=== PATIENT | male | born 1990 | race African-American/Black ===

== ENCOUNTER 2025-03-31 14:00 | Outpatient (AMB) | payer OTHER, SELFPAY ==
--- OUTSIDE RECORDS SUMMARY | 2025-03-31 14:04 | XMS_ITS | Clinical Summary ---
Author Organization [facility] it Address [id number] [place] [id number] Care Team Providers Care Assembly Machine Tender Name Role Phone Ori Gonzales MD Primary Care Pr ovider Allergies No known active allergies Social History Tobacco Use Types Packs/Day Years Used Date Smoking Tobacco: Never Assessed Sex and Gender Information Value Date Recorded Sex Assigned at Not on file Legal Sex Male 3:59 AM EST Gender Identity Not on file Sexual Orientation Not on file Obstetrics History Last Filed Vital Signs Vital Sign Reading Time Taken Comments Blood Pressure 122/66 11/21/2023 2:52 PM EST Pulse 63 11/21/2023 2:52 PM EST Temperature - - Respiratory Rate - - Oxygen Saturation - - Inhaled Oxygen Concentration - - Weight - - Height - - Body Mass Index - - Plan of Treatment Health Maintenance Due Date Last Done Comments DTaP,Tdap,and Td Vaccines (7 - Tdap) 07/06/2015 07/06/2005, 12/19/1996, 04/05/1994, Additional history exists Depression Screening 10/21/2022 HIV Screening 10/21/2022 Hepatitis C Screening 10/21/2022 Social Influencers of Health Screening 10/21/2022 COVID-19 Vaccine ( season) 2024 Influenza Vaccine (Season Ended) 2025 HIB Vaccines Completed 11/07/1993, 06/1993, 01/20/1993, Additional history exists IPV Vaccines Completed 12/19/1996, 03/18, 01/20/1993, Additional history exists Hepatitis B Vaccines Completed 09/08/1997, 01/14/1995, 1992 MMR Vaccines Completed 05/10/2011, 11/07/1993 Meningococcal ACWY Vaccine Completed 05/10/2011, HPV Vaccines Aged Out No longer eligi ble based on patient's age to complete this topic Hepatitis A Vaccines Aged Out No long er eligible based on patient's age to complete this topic Meningococcal B Vaccine Aged Out No l onger eligible based on patient's age to complete this topic Pneumococcal Vaccine: Pediatrics (0 to 5 Years) and At-Risk Patients (6 to 64 Years) Aged Out No longer eligible based on patient's age to complete this topic RSV Immunization Patients Under 20 months Aged Out No longer eligible based on patient's age to complete this topic Varicella Vaccines Aged Out No longer eligible based on patient's age to complete this topic Care Teams Assembly Machine Tender Relationship Specialty Start Date End Date Ori Gonzales MD PCP - General 06/11/23
--- OUTSIDE RECORDS SUMMARY | 2025-03-31 14:04 | XMS_ITS | Clinical Summary ---
Author Organization [facility] Address [address] [place] [address] Care Team Providers Care Fuel Management Handler Name Role Phone Peter Rajan MD Primary Care Provider [phone] Allergies No known active allergies Medications Medication Sig Dispensed Refills Start Date End Date Status ibuprofen (ADVIL,MOTRIN) 200 MG tabletIndications:Mil d to Moderate Pain Take 3 tablets (600 mg total) by mouth every 6 (six) hours as needed for pain. 30 tablet 0 12/03/2019 Active Social History Tobacco Use Types Packs/Day Years Used Date Smoking Tobacco: Former Cigarettes Smokeless Tobacco: Never Alcohol Use Standard Drinks/Week Comments Yes 0 (1 standard drink = 0.6 oz pur e alcohol) soical Sex and Gender Information Value Date Recorded Sex Assigned at Male 12/03/2019 7:54 PM EST Gender Identity Male 12/03/2019 7:54 PM EST Sexual Orientation Not on file Job Start Date Occupation Industry Not on file Not on file Not on file Last Filed Vital Signs Vital Sign Reading Time Taken Comments Blood Pressure 131/75 05/19/2021 10:36 AM EDT Pulse 75 05/19/2021 10:36 AM EDT Temperature 36.7 ??C (98.1 ??F) 05/19/2021 10:35 AM E DT Respiratory Rate 16 05/19/2021 10:35 AM EDT Oxygen Saturation 97% 05/19/2021 10:36 AM EDT Inhaled Oxygen Concentration - - Weight 107 kg (236 lb) 05/19/2021 10:35 AM EDT Height 185.4 cm (6' 1 ) 05/19/2021 10:35 AM EDT Body Mass Index 31.14 05/19/2021 10:35 AM EDT Plan of Treatment Health Maintenance Due Date Last Done Comments Hepatitis B Vaccines (1 of 3 - 3-dose series) 1992 Hepatitis C Screening 1992 COVID-19 Vaccine (#1) 01/15/1993 Depression Screening 2004 BMI Counseling 2010 Preventative Health Evaluation 2010 DTap / Tdap / Td (1 - Tdap) 2011 Influenza Vaccine (#1) 2024 Pneumococcal Vaccine Aged Out No long er eligible based on patient's age to complete this topic RSV Ped < 20 months Aged Out No longe r eligible based on patient's age to complete this topic Care Teams Fuel Management Handler Relationship Specialty Start Date End Date Peter Rajan MD [address] [place] [address] PCP - General Internal Medicine 05/19/21
--- OUTSIDE RECORDS SUMMARY | 2025-03-31 14:04 | XMS_ITS | Patient Health Record ---
Author Organization [facility] Address [address] [place] [address] Care Team Providers Care Flash Designer Name Role Phone RODRIGO ESCOBAR Primary Care Provider [phone] BhargavheshamPaulina tranemelia Unavailable [phone] Allergies No Known Allergies Results Component Value Reference Range Notes Comp. Metabolic Panel ([id number] Reviewed date:08/20/2024 07:50:39 AM Interpretation: Performing Lab:[facility] [place], Phone - [phone], Director - [facility] Notes/Report: Clinical Information:SRC:UR SRC:UR Glucose 95 70-99 mg/dL BUN 16 6-20 mg/dL Creatinine 0.90 0.76-1.27 mg/dL eGFR 116 >59 mL/min/1.73 BUN/Creatinine Ratio 18 9-20 Sodium 141 134-144 mmol/L Potassium 4.1 3.5-5.2 mmol/L Chloride 104 96-106 mmol/L Carbon Dioxide, Total 24 20-29 mmol/L Calcium 9.5 8.7-10.2 mg/dL Protein, Total 7.3 6.0-8.5 g/dL Albumin 4.8 4.1-5.1 g/dL Globulin, Total 2.5 1.5-4.5 g/dL Bilirubin, Total 0.5 0.0-1.2 mg/dL Alkaline Phosphatase 98 44-121 IU/L AST (SGOT) 33 0-40 IU/L ALT (SGPT) 36 0-44 IU/L Lipid Panel-[id number] Reviewed date:08/20/2024 07:50:36 AM Interpretation: Performing Lab:[facility] [place], Phone - [phone], [facility] Notes/Report: Clinical Information:SRC:UR SRC:UR Cholesterol, Total 135 100-199 mg/dL Triglycerides 59 0-149 mg/dL HDL Cholesterol 51 >39 mg/dL VLDL Cholesterol Cj 13 5-40 mg/dL LDL Chol Calc (NIH) 71 0-99 mg/dL Neisseria gonorrhoeae, BABS-1 94652 Reviewed date:08/20/2024 07:50:27 AM Interpretation: Performing Lab:[facility] [address], Phone - [phone], [facility] Notes/Report: Clinical Information:SRC:UR SRC:UR Neisseria gonorrhoeae, BABS Negative Negative Chlamydia trachomatis, BABS-1 21619 Reviewed date:08/20/2024 07:50:32 AM Interpretation: Performing Lab:[facility] [place], [address] [place] [address], Phone - [phone], [facility] Notes/Report: Clinical Information:SRC:UR SRC:UR Chlamydia trachomatis, BABS Negative Negative HIV-1/HIV-2 Qualitative RNA- [id number] Reviewed date:08/20/2024 07:49:46 AM Interpretation: Performing Lab:[facility] [address], Phone - [phone], [facility] Notes/Report: Clinical Information:SRC:UR SRC:UR HIV-1 RNA Non Reactive Non Reactive HIV-2 RNA Non Reactive Non Reactive DONOR Syphilis (T pallidum)- [id number] Reviewed date:08/20/2024 07:52:54 AM Interpretation: Performing Lab:[facility] [address], Phone - [phone], Director - [facility] Notes/Report: Clinical Information:SRC:UR SRC:UR DONOR Syphilis (T pallidum) Non Reactive Non Reactive Test performed with [facility] Syphilis (T pallidum)-G kit. Hepatitis B Surf Ab Quant-00 6530 Reviewed date:08/20/2024 07:50:21 AM Interpretation: Performing Lab:[facility] [address], Phone - [phone], Director - Jaz Notes/Report: Clinical Information:SRC:UR SRC:UR Hepatitis B Surf Ab Quant 12.5 Immunity>10 mIU /mL Status of Immunity Anti-HBs Level Inconsistent with Immunity 0.0 - 10.0 Consistent with Immunity >10.0 TSH-[id number] Reviewed date:08/20/2024 07:49:39 AM Interpretation: Performing Lab:[facility] [place], [address], [place], Phone - [phone], Director - Jaz Notes/Report: Clinical Information:SRC:UR SRC:UR TSH 0.995 0.450-4.500 uIU/mL Testosterone-[id number] Reviewed date:08/20/2024 07:49:56 AM Interpretation: Performing Lab:[facility] [place], [address] [place] [address], [place], Phone - [phone], Director - Jaz Notes/Report: Clinical Information:SRC:UR SRC:UR Testosterone 369 264-916 ng/dL Adult male reference interval is based on a population of healthy nonobese males (BMI <30) between 19 and 39 years old. kelle Beal.al. JCEM 2017,102;1413-8672. PMID: [id number]. Magnesium-[id number] Reviewed date:08/20/2024 07:49:37 AM Interpretation: Performing Lab:[facility] [place], [address] [place] [address], [place], Phone - [phone], Director - Jaz Notes/Report: Clinical Information:SRC:UR SRC:UR Magnesium 2.1 1.6-2.3 mg/dL Reason For Referral Reason Please evaluate and treat Diagnosis 1 Palpitations (R00.2) Referral Organization [facility] Referring Provider First Name [facility] Referring Provider Last Name [facility] Referring Provider Speciality Internal edicine Referred Provider Specialty Cardiology Referral Priority Routine Reason GERD please evalua te and treat Diagnosis 1 Gastroesophageal ref lux disease, unspecified whether esophagitis present (K21.9) Referral Organization [facility] Referring Provider First Name [facility] Referring Provider Last Name [facility]erred Provider Specialty Gastroentero logy General Notes Referral was faxed [facility]. Please contact patient for scheduling.Mathew Rashida 01/18/2025 09:54:34 AM > Referral Priority Routine Medications Medication SIG (Take, Route, Frequency, Duration) Notes Start Date End Date Status Viagra 25 MG 1 tablet as needed Orally Once a day for 30 day(s) 10/29/2022 Not-Taking Omeprazole 20 MG 1 capsule 30 minutes before morning meal Orally Once a day for 30 days 10/07/2024 Not-Taking QC Famotidine Acid Crown Blocker 10 MG 1 tablet as needed Orally Twice a day for 30 days 11/26/2024 Active hydrOXYzine HCl 25 MG 1 tablet as needed Orally Once a day for 30 days 10/07/2024 Active Albuterol Sulfate HFA 108 (90 Base) MCG/ACT 1 puff as needed Inhalation every 4 hrs for 30 days Not-Taking Aspirin 81 81 MG 1 tablet Orally Once a day Not-Taking Immunizations Vaccine Route Administration Date Status Comme nts COVID Moderna Unknown 05/17/2021 Administered COVID Moderna Unknown 06/14/2021 Administered Social History Tobacco Use: Social History Observation Description Date Details (start date - stop date) Former Smoker NA - NA Tobacco Use/Smoking Question Answer Notes Are you a former smoker How long has it been since you last smoked? 3-6 months Alcohol Screen (Audit-C) Question Answer Notes Did you have a drink contain ing alcohol in the past year? Yes How often did you have a dri nk containing alcohol in the past year? Monthly or less (1 point) How many drinks did you have on a typical day when you were drinking in the past year? 1 or 2 drinks (0 point) Points 1 Interpretation Negative Section Notes: Patient was heavy drinker an d cut back in 2017. Patient was heavy drinker an d cut back in 2017. Patient was heavy drinker an d cut back in 2017. Patient was heavy drinker an d cut back in 2017. Patient was heavy drinker an d he stopped drinking heavy in 2017. Patient was heavy drinker an d cut back in 2017. Problems Problem Type SNOMED Code ICD Code Onset Dates Problem Status W/U Status Risk Notes Problem Obesity due to excess calories (392737345) Other obesity due to excess calories (E66.09) Active confirmed Problem Cannabis abuse (38360927) Cannabis abuse, uncomplicated (F12.10) Active confirmed Problem Mild intermittent asthma (783391625) Mild intermittent asthma, uncomplicated (J45.20) Active confirmed Problem Erectile dysfunction (disorder) (514135892) Male erectile dysfunction, unspecified (N52.9) Active confirmed Problem Painful micturition (33964088) Painful micturition, unspecified (R30.9) Active confirmed Problem Gastroesophageal reflux disease without esophagitis (220475697) Gastroesophageal reflux disease without esophagitis (K21.9) Active confirmed Problem Generalized anxiety disorder (65702016) MARYLIN (generalized anxiety disorder) (F41.1) Active confirmed Problem Gastroesophageal reflux disease (131121844) Gastroesophageal reflux disease, unspecified whether esophagitis present (K21.9) Active confirmed Vital Signs Heart Rate 75 /min 01/15/2025 Temperature 97.4 degrees Fahrenheit 01/15/2025 Oximetry 98 % 01/15/2025 Blood pressure diastolic 72 mm Hg 01/15/2025 Height 71 in 01/15/2025 Blood pressure systolic 120 mm Hg 01/15/2025 Weight 227.6 lbs 01/15/2025 BMI 31.74 kg/m2 01/15/2025 Encounters Encounter Location Date Provider Diagnosis [address] [address] 06/30/2024 Lenin Multani [address] [address] 07/31/2024 RODRIGO ESCOBAR Male erectile dysfunction, unspecified N52.9 ; Palpitations R00.2 ; Mild intermittent asthma, uncomplicated J45.20 ; Cannabis abuse, uncomplicated F12.10 ; Encounter for screening for infections with a predominantly sexual mode of transmission Z11.3 and Encounter for screening for cardiovascular disorders Z13.[address] [address] 09/22/2024 Ghadeer Bhargavloum Palpitation R00.2 ; Cannabis abuse, uncomplicated F12.10 and Mild intermittent asthma, uncomplicated J45.[address] [address] 10/07/2024 Ghadeer Bhargavloum Gastroesophageal ref lux disease without esophagitis K21.9 and MARYLIN (generalized anxiety disorder) F41.[address] [address] 11/04/2024 [facility] Gastroesophageal ref lux disease without esophagitis K21.9 ; MARYLIN (generalized anxiety disorder) F41.1 ; Palpitations R00.2 ; Other obesity due to excess calories E66.09 ; Dietary counseling and surveillance Z71.3 and Cannabis abuse, uncomplicated F12.10 [facility] [address] [place] [address] 01/15/2025 [facility] Gastroesophageal ref lux disease without esophagitis K21.9 [facility] [address] [place] [address] 08/10/2024 [facility] [address] [place] [address] 08/13/2024 [facility] [address] [place] [address] 01/18/2025 [facility] [address] [place] [address] 02/26/2025 [facility] Shortness of breath R06.02 [facility] [address] [place] [address] 03/31/2025 [facility] [address] [place] [address] 09/16/2024 [facility] [address] [place] [address] 09/16/2024 [facility] [address] [place] [address] 09/17/2024 [facility] [address] [place] [address] 09/18/2024 [facility] [address] [place] [address] 10/05/2024 [facility] [address] [place] [address] 10/05/2024 [facility] [address] [place] [address] 10/05/2024 [facility] [address] [place] [address] 10/12/[address] [place] [address] 10/14/[address] [place] [address] 11/26/2024 [facility] Gastroesophageal ref lux disease without esophagitis K21.[address] [place] [address] 11/26/[address] [place] [address] 12/11/[address] [place] [address] 03/21/[address] [place] [address] 03/22/[address] [place] [address] 03/24/2025 [facility] Assessments Encounter Date Diagnosis (ICD Code) Assessment Notes Treatment Notes Treatment Clinical Notes Section Notes 11/26/2024 Gastroesophageal reflux disease without esophagitis (ICD-10 - K21.9) 01/15/2025 Gastroesophageal reflux disease without esophagitis (ICD-10 - K21.9) Isidoro is 34 years old gentleman with generalized anxiety disorder, mild intermittent asthma, cannabis use is here for symptoms of nausea and sometimes regurgitation of food especially in the morning is here for follow-up. Plan is as follows Acid reflux. Differential is gastritis, hiatal hernia, cannabis use. Currently on famotidine 10 mg 1 tablet twice a day. According to him PPI makes his symptoms worse. Diet restrictions discussed. Advised abstinence from cannabis and observe. Referral to GI for upper endoscopy for further evaluation 02/26/2025 Shortness of breath (ICD-10 - R06.02) 11/04/2024 Gastroesophageal reflux disease without esophagitis (ICD-10 - K21.9) Mr. Hollins is a 34-year-old gentleman with palpitation, GERD, anxiety disorder, male erectile dysfunction and mild intermittent asthma here for follow-up on blood work Plan as follows: Palpitations. Most likely secondary to anxiety and he was also using marijuana which he has decreased and high calorie foods/caffeinated beverages. There is no cardiac complement to palpitations. No need for workup because he had extensive workup in the hospital and it was negative. Acid reflux. Continue omeprazole 20 mg 1 tablet daily which is helping. Generalized anxiety disorder. Continue on hydroxyzine 25 mg 1 tablet daily. He also had a consult with the psychiatry nurse practitioner not too long ago for question of auditory and visual hallucinations which most likely were coming from marijuana use. According to the patient they wanted him to be on medications but he declined. He is currently having therapy sessions on a regular basis. Obesity. Patient encouraged to lose weight. He has cut back on high calorie foods and he is exercising regularly as much as possible Marijuana dependence. Side effects of marijuana discussed with the patient and he has almost stopped smoking marijuana which most likely were the cause of his symptoms of palpitations, anxiety, auditory/visual hallucination and most likely erectile dysfunction as well. 11/04/2024 MARYLIN (generalized anxiety disorder) (ICD-10 - F41.1) Mr. Hollins is a 34-year-old gentleman with palpitation, GERD, anxiety disorder, male erectile dysfunction and mild intermittent asthma here for follow-up on blood work Plan as follows: Palpitations. Most likely secondary to anxiety and he was also using marijuana which he has decreased and high calorie foods/caffeinated beverages. There is no cardiac complement to palpitations. No need for workup because he had extensive workup in the hospital and it was negative. Acid reflux. Continue omeprazole 20 mg 1 tablet daily which is helping. Generalized anxiety disorder. Continue on hydroxyzine 25 mg 1 tablet daily. He also had a consult with the psychiatry nurse practitioner not too long ago for question of auditory and visual hallucinations which most likely were coming from marijuana use. According to the patient they wanted him to be on medications but he declined. He is currently having therapy sessions on a regular basis. Obesity. Patient encouraged to lose weight. He has cut back on high calorie foods and he is exercising regularly as much as possible Marijuana dependence. Side effects of marijuana discussed with the patient and he has almost stopped smoking marijuana which most likely were the cause of his symptoms of palpitations, anxiety, auditory/visual hallucination and most likely erectile dysfunction as well. 07/31/2024 Male erectile dysfunction, unspecified (ICD-10 - N52.9) Mr. Hollins is a 34-year-old gentleman with male erectile dysfunction and mild intermittent asthma here for follow up. Plan is as follows: Palpitations. Advised not to consume energy drinks, high calorie foods and preexercise drinks which can lead to palpitation. Encouraged to avoid caffeinated beverages and smoking. Appropriate hydration he can use qlfp-pfl-nkilafl magnesium. Electrocardiogram was done today which is normal sinus rhythm with no acute ST or T wave changes. We will do 48 hours Holter monitor for further evaluation. We also ordered blood work to rule out any electrolyte abnormality. He can use jkcf-sdu-scondij magnesium. Hyperlipidemia. Dietary restrictions advised. Recheck lipid panel. Male erectile dysfunction. Continue Viagra 25 MG. Weight loss advised. Asthma. He uses his inhalers as needed. Cannabis use. Complications of cannabis use discussed and patient abstinence encouraged. Class 1 obesity. Advised cardio exercises. Consume more proteins. Unprotected sexual intercourse. Blood work ordered for STD and encouraged not to do unprotected sexual intercourse General health concerns discussed with patient. Scribe services used to formulate this note under HIPAA compliance and under [place] law mandated for scribe services. Patient aware of service. Verbal consent and written consent taken from the patient. Patient understands and verbalizes understanding of the scribes services and all questions answered regarding scribes services. Patient agrees to use of scribes services. 07/31/2024 Palpitations (ICD-10 - R00.2) Mr. Hollins is a 34-year-old gentleman with male erectile dysfunction and mild intermittent asthma here for follow up. Plan is as follows: Palpitations. Advised not to consume energy drinks, high calorie foods and preexercise drinks which can lead to palpitation. Encouraged to avoid caffeinated beverages and smoking. Appropriate hydration he can use qozu-pyo-lfmjkqp magnesium. Electrocardiogram was done today which is normal sinus rhythm with no acute ST or T wave changes. We will do 48 hours Holter monitor for further evaluation. We also ordered blood work to rule out any electrolyte abnormality. He can use dxgx-bej-uijjpae magnesium. Hyperlipidemia. Dietary restrictions advised. Recheck lipid panel. Male erectile dysfunction. Continue Viagra 25 MG. Weight loss advised. Asthma. He uses his inhalers as needed. Cannabis use. Complications of cannabis use discussed and patient abstinence encouraged. Class 1 obesity. Advised cardio exercises. Consume more proteins. Unprotected sexual intercourse. Blood work ordered for STD and encouraged not to do unprotected sexual intercourse General health concerns discussed with patient. Scribe services used to formulate this note under HIPAA compliance and under [place] law mandated for scribe services. Patient aware of service. Verbal consent and written consent taken from the patient. Patient understands and verbalizes understanding of the scribes services and all questions answered regarding scribes services. Patient agrees to use of scribes services. 09/22/2024 Palpitation (ICD-10 - R00.2) Mr. Hollins is a 34-year-old gentleman with male erectile dysfunction and mild intermittent asthma here for follow up. Plan as follows: Palpitation: - EKG is done in the office today, HR of 65bpm. Non-specific changes. We will check CBC for possible anemia. He had TSH and magnesium tests done and were within normal limits. - Advised patient on discontinuiung pre-workout supplements, energy drinks, caffiene and marijuana. Advised on Hydration, decreased in workout intensity for one week. We will recheck in one week. If sxs have subsided then it is due to stimulants if not then it is possible anxiety. Cannabis Use: - Possible S/E have been discussed. CBT is an option for smoking cessation Mild intermittent asthma - Lungs are CTAB, no coughing. Advised on Using albuterol only as needed for cough. I have rendered the services for this patient under direct supervision of Dr. Escobar, who did not see the patient but was available upon request 10/07/2024 Gastroesophageal reflux disease without esophagitis (ICD-10 - K21.9) Mr. Hollins is a 34-year-old gentleman with male erectile dysfunction and mild intermittent asthma here for chest pain that is triggered by eating. Plan as follows: GERD: - Advised patient that his CP is due to GERD. Avoid greasy food and triggers. Started him on Omeprazole 20mg. Based on presentation of the sxs, less likely cardiac pathology given negative workup in the ER. He has also been referred to Cardiology for 48hour Holter monitor test. He has not received a call yet. - Advised on discontinuing pre-workouts, no physical activity for this week to rest his body. Advised that if he goes back to gym not exceed his capacity. Albuterol as advised before, to be taken if he experiences cough only. Educated that common s/e of palpitations and tremors are common. We will follow up in 1 week. MARYLIN: - Denies HI, SI. 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 He has an appt this week with [facility]. Started patient on Hydroxyzine for anxiety until he sees psychiatry this week for further evaluation. I have rendered the services for this patient under direct supervision of Dr. Escobar, who did not see the patient but was available upon request 10/07/2024 MARYLIN (generalized anxiety disorder) (ICD-10 - F41.1) Mr. Hollins is a 34-year-old gentleman with male erectile dysfunction and mild intermittent asthma here for chest pain that is triggered by eating. Plan as follows: GERD: - Advised patient that his CP is due to GERD. Avoid greasy food and triggers. Started him on Omeprazole 20mg. Based on presentation of the sxs, less likely cardiac pathology given negative workup in the ER. He has also been referred to Cardiology for 48hour Holter monitor test. He has not received a call yet. - Advised on discontinuing pre-workouts, no physical activity for this week to rest his body. Advised that if he goes back to gym not exceed his capacity. Albuterol as advised before, to be taken if he experiences cough only. Educated that common s/e of palpitations and tremors are common. We will follow up in 1 week. MARYLIN: - Denies HI, SI. 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 He has an appt this week with [facility]. Started patient on Hydroxyzine for anxiety until he sees psychiatry this week for further evaluation. I have rendered the services for this patient under direct supervision of Dr. Escobar, who did not see the patient but was available upon request 07/31/2024 Mild intermittent asthma, uncomplicated (ICD-10 - J45.20) Mr. Hollins is a 34-year-old gentleman with male erectile dysfunction and mild intermittent asthma here for follow up. Plan is as follows: Palpitations. Advised not to consume energy drinks, high calorie foods and preexercise drinks which can lead to palpitation. Encouraged to avoid caffeinated beverages and smoking. Appropriate hydration he can use sxaz-ofq-wycjyxk magnesium. Electrocardiogram was done today which is normal sinus rhythm with no acute ST or T wave changes. We will do 48 hours Holter monitor for further evaluation. We also ordered blood work to rule out any electrolyte abnormality. He can use vhza-bis-fsrunvs magnesium. Hyperlipidemia. Dietary restrictions advised. Recheck lipid panel. Male erectile dysfunction. Continue Viagra 25 MG. Weight loss advised. Asthma. He uses his inhalers as needed. Cannabis use. Complications of cannabis use discussed and patient abstinence encouraged. Class 1 obesity. Advised cardio exercises. Consume more proteins. Unprotected sexual intercourse. Blood work ordered for STD and encouraged not to do unprotected sexual intercourse General health concerns discussed with patient. Scribe services used to formulate this note under HIPAA compliance and under [place] law mandated for scribe services. Patient aware of service. Verbal consent and written consent taken from the patient. Patient understands and verbalizes understanding of the scribes services and all questions answered regarding scribes services. Patient agrees to use of scribes services. 09/22/2024 Cannabis abuse, uncomplicated (ICD-10 - F12.10) Mr. Hollins is a 34-year-old gentleman with male erectile dysfunction and mild intermittent asthma here for follow up. Plan as follows: Palpitation: - EKG is done in the office today, HR of 65bpm. Non-specific changes. We will check CBC for possible anemia. He had TSH and magnesium tests done and were within normal limits. - Advised patient on discontinuiung pre-workout supplements, energy drinks, caffiene and marijuana. Advised on Hydration, decreased in workout intensity for one week. We will recheck in one week. If sxs have subsided then it is due to stimulants if not then it is possible anxiety. Cannabis Use: - Possible S/E have been discussed. CBT is an option for smoking cessation Mild intermittent asthma - Lungs are CTAB, no coughing. Advised on Using albuterol only as needed for cough. I have rendered the services for this patient under direct supervision of Dr. Escobar, who did not see the patient but was available upon request 11/04/2024 Palpitations (ICD-10 - R00.2) Mr. Hollins is a 34-year-old gentleman with palpitation, GERD, anxiety disorder, male erectile dysfunction and mild intermittent asthma here for follow-up on blood work Plan as follows: Palpitations. Most likely secondary to anxiety and he was also using marijuana which he has decreased and high calorie foods/caffeinated beverages. There is no cardiac complement to palpitations. No need for workup because he had extensive workup in the hospital and it was negative. Acid reflux. Continue omeprazole 20 mg 1 tablet daily which is helping. Generalized anxiety disorder. Continue on hydroxyzine 25 mg 1 tablet daily. He also had a consult with the psychiatry nurse practitioner not too long ago for question of auditory and visual hallucinations which most likely were coming from marijuana use. According to the patient they wanted him to be on medications but he declined. He is currently having therapy sessions on a regular basis. Obesity. Patient encouraged to lose weight. He has cut back on high calorie foods and he is exercising regularly as much as possible Marijuana dependence. Side effects of marijuana discussed with the patient and he has almost stopped smoking marijuana which most likely were the cause of his symptoms of palpitations, anxiety, auditory/visual hallucination and most likely erectile dysfunction as well. 09/22/2024 Mild intermittent asthma, uncomplicated (ICD-10 - J45.20) Mr. Hollins is a 34-year-old gentleman with male erectile dysfunction and mild intermittent asthma here for follow up. Plan as follows: Palpitation: - EKG is done in the office today, HR of 65bpm. Non-specific changes. We will check CBC for possible anemia. He had TSH and magnesium tests done and were within normal limits. - Advised patient on discontinuiung pre-workout supplements, energy drinks, caffiene and marijuana. Advised on Hydration, decreased in workout intensity for one week. We will recheck in one week. If sxs have subsided then it is due to stimulants if not then it is possible anxiety. Cannabis Use: - Possible S/E have been discussed. CBT is an option for smoking cessation Mild intermittent asthma - Lungs are CTAB, no coughing. Advised on Using albuterol only as needed for cough. I have rendered the services for this patient under direct supervision of Dr. Escobar, who did not see the patient but was available upon request 07/31/2024 Cannabis abuse, uncomplicated (ICD-10 - F12.10) Mr. Hollins is a 34-year-old gentleman with male erectile dysfunction and mild intermittent asthma here for follow up. Plan is as follows: Palpitations. Advised not to consume energy drinks, high calorie foods and preexercise drinks which can lead to palpitation. Encouraged to avoid caffeinated beverages and smoking. Appropriate hydration he can use zgal-pom-eccjuny magnesium. Electrocardiogram was done today which is normal sinus rhythm with no acute ST or T wave changes. We will do 48 hours Holter monitor for further evaluation. We also ordered blood work to rule out any electrolyte abnormality. He can use uwdk-gxe-kezbbey magnesium. Hyperlipidemia. Dietary restrictions advised. Recheck lipid panel. Male erectile dysfunction. Continue Viagra 25 MG. Weight loss advised. Asthma. He uses his inhalers as needed. Cannabis use. Complications of cannabis use discussed and patient abstinence encouraged. Class 1 obesity. Advised cardio exercises. Consume more proteins. Unprotected sexual intercourse. Blood work ordered for STD and encouraged not to do unprotected sexual intercourse General health concerns discussed with patient. Scribe services used to formulate this note under HIPAA compliance and under [place] law mandated for scribe services. Patient aware of service. Verbal consent and written consent taken from the patient. Patient understands and verbalizes understanding of the scribes services and all questions answered regarding scribes services. Patient agrees to use of scribes services. 11/04/2024 Other obesity due to excess calories (ICD-10 - E66.09) Mr. Hollins is a 34-year-old gentleman with palpitation, GERD, anxiety disorder, male erectile dysfunction and mild intermittent asthma here for follow-up on blood work Plan as follows: Palpitations. Most likely secondary to anxiety and he was also using marijuana which he has decreased and high calorie foods/caffeinated beverages. There is no cardiac complement to palpitations. No need for workup because he had extensive workup in the hospital and it was negative. Acid reflux. Continue omeprazole 20 mg 1 tablet daily which is helping. Generalized anxiety disorder. Continue on hydroxyzine 25 mg 1 tablet daily. He also had a consult with the psychiatry nurse practitioner not too long ago for question of auditory and visual hallucinations which most likely were coming from marijuana use. According to the patient they wanted him to be on medications but he declined. He is currently having therapy sessions on a regular basis. Obesity. Patient encouraged to lose weight. He has cut back on high calorie foods and he is exercising regularly as much as possible Marijuana dependence. Side effects of marijuana discussed with the patient and he has almost stopped smoking marijuana which most likely were the cause of his symptoms of palpitations, anxiety, auditory/visual hallucination and most likely erectile dysfunction as well. 07/31/2024 Encounter for screening for infections with a predominantly sexual mode of transmission (ICD-10 - Z11.3) Mr. Hollins is a 34-year-old gentleman with male erectile dysfunction and mild intermittent asthma here for follow up. Plan is as follows: Palpitations. Advised not to consume energy drinks, high calorie foods and preexercise drinks which can lead to palpitation. Encouraged to avoid caffeinated beverages and smoking. Appropriate hydration he can use hfub-xsb-crlroeq magnesium. Electrocardiogram was done today which is normal sinus rhythm with no acute ST or T wave changes. We will do 48 hours Holter monitor for further evaluation. We also ordered blood work to rule out any electrolyte abnormality. He can use rsnm-mms-qxyzkrw magnesium. Hyperlipidemia. Dietary restrictions advised. Recheck lipid panel. Male erectile dysfunction. Continue Viagra 25 MG. Weight loss advised. Asthma. He uses his inhalers as needed. Cannabis use. Complications of cannabis use discussed and patient abstinence encouraged. Class 1 obesity. Advised cardio exercises. Consume more proteins. Unprotected sexual intercourse. Blood work ordered for STD and encouraged not to do unprotected sexual intercourse General health concerns discussed with patient. Scribe services used to formulate this note under HIPAA compliance and under [place] law mandated for scribe services. Patient aware of service. Verbal consent and written consent taken from the patient. Patient understands and verbalizes understanding of the scribes services and all questions answered regarding scribes services. Patient agrees to use of scribes services. 11/04/2024 Dietary counseling and surveillance (ICD-10 - Z71.3) Mr. Hollins is a 34-year-old gentleman with palpitation, GERD, anxiety disorder, male erectile dysfunction and mild intermittent asthma here for follow-up on blood work Plan as follows: Palpitations. Most likely secondary to anxiety and he was also using marijuana which he has decreased and high calorie foods/caffeinated beverages. There is no cardiac complement to palpitations. No need for workup because he had extensive workup in the hospital and it was negative. Acid reflux. Continue omeprazole 20 mg 1 tablet daily which is helping. Generalized anxiety disorder. Continue on hydroxyzine 25 mg 1 tablet daily. He also had a consult with the psychiatry nurse practitioner not too long ago for question of auditory and visual hallucinations which most likely were coming from marijuana use. According to the patient they wanted him to be on medications but he declined. He is currently having therapy sessions on a regular basis. Obesity. Patient encouraged to lose weight. He has cut back on high calorie foods and he is exercising regularly as much as possible Marijuana dependence. Side effects of marijuana discussed with the patient and he has almost stopped smoking marijuana which most likely were the cause of his symptoms of palpitations, anxiety, auditory/visual hallucination and most likely erectile dysfunction as well. 07/31/2024 Encounter for screening for cardiovascular disorders (ICD-10 - Z13.6) Mr. Hollins is a 34-year-old gentleman with male erectile dysfunction and mild intermittent asthma here for follow up. Plan is as follows: Palpitations. Advised not to consume energy drinks, high calorie foods and preexercise drinks which can lead to palpitation. Encouraged to avoid caffeinated beverages and smoking. Appropriate hydration he can use sgjs-qlh-qlorffw magnesium. Electrocardiogram was done today which is normal sinus rhythm with no acute ST or T wave changes. We will do 48 hours Holter monitor for further evaluation. We also ordered blood work to rule out any electrolyte abnormality. He can use mdet-tnj-alpxmyj magnesium. Hyperlipidemia. Dietary restrictions advised. Recheck lipid panel. Male erectile dysfunction. Continue Viagra 25 MG. Weight loss advised. Asthma. He uses his inhalers as needed. Cannabis use. Complications of cannabis use discussed and patient abstinence encouraged. Class 1 obesity. Advised cardio exercises. Consume more proteins. Unprotected sexual intercourse. Blood work ordered for STD and encouraged not to do unprotected sexual intercourse General health concerns discussed with patient. Scribe services used to formulate this note under HIPAA compliance and under [place] law mandated for scribe services. Patient aware of service. Verbal consent and written consent taken from the patient. Patient understands and verbalizes understanding of the scribes services and all questions answered regarding scribes services. Patient agrees to use of scribes services. 11/04/2024 Cannabis abuse, uncomplicated (ICD-10 - F12.10) Mr. Hollins is a 34-year-old gentleman with palpitation, GERD, anxiety disorder, male erectile dysfunction and mild intermittent asthma here for follow-up on blood work Plan as follows: Palpitations. Most likely secondary to anxiety and he was also using marijuana which he has decreased and high calorie foods/caffeinated beverages. There is no cardiac complement to palpitations. No need for workup because he had extensive workup in the hospital and it was negative. Acid reflux. Continue omeprazole 20 mg 1 tablet daily which is helping. Generalized anxiety disorder. Continue on hydroxyzine 25 mg 1 tablet daily. He also had a consult with the psychiatry nurse practitioner not too long ago for question of auditory and visual hallucinations which most likely were coming from marijuana use. According to the patient they wanted him to be on medications but he declined. He is currently having therapy sessions on a regular basis. Obesity. Patient encouraged to lose weight. He has cut back on high calorie foods and he is exercising regularly as much as possible Marijuana dependence. Side effects of marijuana discussed with the patient and he has almost stopped smoking marijuana which most likely were the cause of his symptoms of palpitations, anxiety, auditory/visual hallucination and most likely erectile dysfunction as well. Plan Of Treatment Pending Test Test Name Order Date Holter Test 07/31/2024 CHLAMYDIA GC AMP PROBE, URINE 11/21/2023 HEPATITIS B SURFACE ANTIGEN 11/21/2023 HIV ANTIBODY/ANTIGEN, 4TH GENERATION 02/2024 LIPID PANEL 03/26/2023 SYPHILIS TESTING 11/21/2023 Stress Echocardiogram 02/26/2025 CBC/Differential (No Platelet)-[id number] Future Test Test Name Order Date BASIC METABOLIC PANEL 06/03/2023 LIPID PANEL 06/03/2023 TESTOSTERONE, TOTAL (MALES > 15 YRS) Next Appt Details Provider Name:Lenin ramos, 04/07/2025 02:00:00 PM, [address] [place] [address], [phone], Insurance Providers Payer Name Payer Address Payer Phone Subscriber Number Group Number Insured Name Patient Relationship to Insured Coverage Start Date Coverage End Date [facility] [address] [place] [phone] [id number] Isidoro Hollins Self - patient is the insured Medical (General) History Medical History History ICD Code Mild persistent asthma Male erectile dysfunction
[2025-03-31 14:16] VITALS: BMI 32.1
--- NOTE | 2025-03-31 14:16 | A.OFFVIS_ITS ---
Vital Signs 03/31/25 14:16 03/31/25 15:22 Height 6 ft Weight 236 lb 12.423 oz BMI 32.1 BP 118/72 Blood Pressure Location Rt brachial Position Sitting Respiration 18 Pulse 68 Pulse Source Pulse Oximeter Pulse Oximetry (%) 98 Oxygen Delivery Method Room Air Intake Visit Reasons: Gastroesophageal reflux disease (GERD) Intake Note: Patient referred for gerd which started in July Allergies omeprazole Allergy (Mild, Verified 03/31/25 14:17) Dizziness Medication List - Last Reconciled 03/31/25 by Little Handy CNP hydroxyzine HCl 25 mg PO BEDTIME PRN HPI HPI Gastroesophageal reflux disease (GERD): Details: Patient is a 34-year-old male with PMH of erectile dysfunction and asthma. He was referred by PCP for further evaluation of acid reflux. The patient reports symptoms of acid reflux that started in July. Initial symptoms included chest pain that mimicked a heart attack, leading to emergency room visits and PCP consultations with normal blood work results. The patient was a marijuana smoker at the onset but has since quit. Symptoms currently include a burning sensation in the mid-chest, esophageal spasms, throat tightness, and occasional regurgitation. He also reports difficulty swallowing, particularly with liquids, and occasional sensation of food getting stuck in the throat. Alcohol consumption aggravates GERD symptoms, specifically with certain types like [place] Goose but not with others like Casper's. Omeprazole caused dizziness and was discontinued. Relief is obtained through dietary modifications and abstaining from alcohol and smoking. Severity rated as moderate with significant impact on daily activities. The patient expressed interest in surgical options, specifically the LINX procedure, to manage symptoms and improve quality of life. The patient reported using ephedrine sulfate (25 mg) over the counter as a medication to manage asthma symptoms when albuterol was not effective. The patient experienced esophageal spasms and chest tightness associated with albuterol use, which led to discontinuation of both medications. The patient notes sensitivity to sugar and lactose, with symptoms of throat tightness after consumption. 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, states he wore a heart monitor to log symptoms, which confirmed no cardiac abnormalities. Patient denies: fever/chills, n/v, appetite changes, unintentional wt loss, ab pain, constipation/diarrhea or melena/hematochezia. SOCIAL HISTORY - Diet: Currently on a bland diet, typically rice and chicken, avoids known triggers. - Alcohol/Tobacco/Drug Use: Binge drinks occasionally, formerly smoked marijuana but has since quit. No use of recreational drugs or tobacco. - family hx as below - denies personal hx of CA -denies other significant cardiopulmonary history [facility] Medical History (Updated 03/31/25 @ 14:58 by Little Handy CNP) Overweight Acid reflux Family History (Updated 03/22/25 @ 11:58 by Loretta Mukherjee) Father HTN (hypertension) Mother HTN (hypertension) Social History (Updated 03/22/25 @ 12:00 by Loretta Mukherjee) Household Members: Family Alcohol intake: current Patient Tobacco Use Status: Former Tobacco user Tobacco use type: Cigarette Substance Use Type: Marijuana Review of Systems Const Reports as per HPI ENT Reports as per HPI Card Reports as per HPI Resp Reports as per HPI GI Reports as per HPI Reports as per HPI Physical Exam Vital Signs: BMI result Body Mass Index 32.1 Const General: healthy appearing, no acute distress and well developed Nutritional Appearance: well nourished Orientation/consciousness: patient oriented x3 HEENT Head: Yes normal to inspection, Yes normocephalic and Yes atraumatic Face and sinus: Yes normal facial exam Eyes General: appearance normal, both eyes and all related structures Neck Neck: Yes normal visual inspection Resp Effort & Inspection: normal respiratory effort, able to speak in complete sentences, no tracheal deviation and symmetric chest movement Auscultation: clear to auscultation bilaterally Cardio Jugular venous distension: no JVD Rate: regular rate Rhythm: regular rhythm Heart sounds: S1 normal heart sound present, S2 normal heart sound present, no gallops and no murmurs GI Inspection: Yes normal to inspection and No distended Palpation (GI): Soft to palpation, not firm, nontender and No hepatosplenomegaly present Auscultation: normal bowel sounds Neuro General: patient oriented x3 Gait exam (Neuro): Normal gait present Psych Appearance: grossly normal Mental Status: mental status grossly normal Speech and movement: Normal speech and movement present Affect: normal affect Attitude: cooperative Thought process: Normal thought process present Thought content: Normal thought content present Insight: Good insight present (Psych) Judgement: Good judgement present (Psych) Assessment & Plan Assessment & Plan (1) Acid reflux: Code(s): K21.9 - Gastro-esophageal reflux disease without esophagitis Category: Medical Qualifiers: Esophagitis presence: esophagitis presence not specified Qualified Code(s): K21.9 - Gastro-esophageal reflux disease without esophagitis Plan: Advise we start with diagnostic workup prior to exploring surgery. Do believe he would benefit from pharmacological management with PPI. However, reports of dizziness with omeprazole. We will trial famotidine 20 mg twice a day. We will also obtain barium swallow and EGD given reports of dysphagia. Diagnostic Tests: - Barium swallow study - EGD - Basic labs including complete blood count (CBC), electrolytes, and glucose levels. Patient Education: -Advised against heavy meals; encouraged small, frequent meals instead of large ones. - Instructed to remain upright for 2?3 hours after eating. - Advised to avoid late-night meals, spicy foods, caffeine, alcohol, known dietary triggers, and tight-fitting clothing. - Emphasis placed on gradual implementation of lifestyle changes to improve adherence and symptom control. Plan Advised to avoid OTC ephedrine sulfate until further discussion with PCP on asthma management. Follow-up in 8 weeks or sooner as needed. Time: I spent a total of 60 minutes on the date of encounter which includes: Preparing to see the patient (reviewed previous documentation, test results and medical history) Performing a medically appropriate exam and/or evaluation Ordering medications, tests, and procedures Documenting clinical information in the health record Orders: Orders FL barium swallow Today K21.9 - Gastro-esophageal reflux disease without esophagitis IRON PROFILE Today K21.9 - Gastro-esophageal reflux disease without esophagitis Basic Metabolic Panel Today K21.9 - Gastro-esophageal reflux disease without esophagitis Complete Blood Count no Diff Today K21.9 - Gastro-esophageal reflux disease without esophagitis Hemoglobin A1c Today E66.3 - Overweight Medications: New famotidine Take one tablet twice daily. Best taken 10 to 60 minutes before eating. 20 mg PO BID 180 tabs 1RF GERD Coding Level of Care Code New Pt New Pt Level 5 (14727) Patient Type New Diagnoses Gastroesophageal reflux disease, unspecified whether esophagitis present K21.9 Esophagitis presence: esophagitis presence not specified
[2025-03-31 15:22] VITALS: BP 118/72; PULSE 68; RESP 18; O2SAT 98
== END 2025-03-31 15:14 | disposition home or self-care (01) ==
LOC: HO.HGI 14:00
PROVIDERS: PCP Hospitalist; Visit Provider Nurse Practitioner Family
DX: K21.9 Gastro-esophageal reflux disease without esophagitis (principal)
CPT/HCPCS: 99205

== ENCOUNTER 2025-03-31 14:00 | Outpatient (REF) | payer OTHER, SELFPAY ==
--- OUTSIDE RECORDS SUMMARY | 2025-03-31 15:26 | XMS_ITS | Clinical Summary ---
Author Organization [facility] it Address [id number] [place] [id number] Care Team Providers Care Bridge Expert Name Role Phone Ori Gonzales MD Primary [...] age to complete this topic Care Teams Bridge Expert Relationship Specialty Start Date End Date Ori Gonzales MD PCP - General 06/11/23
--- OUTSIDE RECORDS SUMMARY | 2025-03-31 15:26 | XMS_ITS | Clinical Summary ---
Author Organization [facility] Address [address] [place] [address] Care Team Providers Care Mfg Assoc Name Role Phone Peter Rajan MD Primary Care Provider [phone] Allergies No known active allergies Medications Medication [...] age to complete this topic Care Teams Mfg Assoc Relationship Specialty Start Date End Date Peter Rajan MD [address] [place] [address] PCP - General Internal Medicine 05/19/21
[2025-03-31 16:07] LABS: Hematocrit 44.2 % (42.0-52.0); Hemoglobin 14.8 g/dl (14.0-18.0); Mean Corpuscular HGB Conc 33.5 g/dl (31.0-36.0); Mean Corpuscular Hemoglobin 28.7 pg (27.0-33.0); Mean Corpuscular Volume 85.8 fL (80.0-98.0); Mean Platelet Volume 10.1 fL (9.4-12.4); Platelet Count 249 X10*3/uL (160-400); Red Blood Count 5.15 X10*6/uL (4.60-5.80); Red Cell Distribution Width 11.9 % (11.0-16.0); White Blood Count 8.2 X10*3/uL (4.8-10.8)
[2025-03-31 16:12] LABS: Estimated Average Glucose 103 mg/dL; Hemoglobin A1c % 5.2 % (<6.0); Total Hemoglobin (HGBA1C) 3789.6548 umol/L
[2025-03-31 16:30] LABS: Anion Gap 13 (12-20); Blood Urea Nitrogen 16 mg/dL (9-16); Calcium 9.2 mg/dL (8.4-10.2); Carbon Dioxide 29 mmol/L (22-29); Chloride 103 mmol/L (96-108); Estimated Glomerular Filt Rate > 60; Glucose Random 94 mg/dL (60-115); Iron 78 mcg/dL (45-160); Percent Iron Saturation 24 % (15-50); Potassium 3.7 mmol/L (3.3-5.1); Sodium 141 mmol/L (135-145); Total Iron Binding Capacity 326 mcg/dL (228-428); Unsaturated Iron Binding 248 ug/dL
== END 2025-03-31 14:01 | disposition home or self-care (01) ==
LOC: HO.LAB 14:00
PROVIDERS: PCP Hospitalist; Visit Provider Nurse Practitioner Family
DX: K21.9 Gastro-esophageal reflux disease without esophagitis (principal); E66.3 Overweight; Z13.1 Encounter for screening for diabetes mellitus
CPT/HCPCS: 36415; 80048; 83036; 83540; 85027

== ENCOUNTER 2025-06-01 08:16 | Outpatient (AMB) | payer OTHER, SELFPAY ==
--- OUTSIDE RECORDS SUMMARY | 2025-06-01 08:21 | XMS_ITS | Clinical Summary ---
Author Organization [facility] it Address [id number] [place] [id number] Care Team Providers Care Architect Intern Name Role Phone Ori Gonzales MD Primary [...] COVID-19 Vaccine ( season) 2024 Influenza Vaccine (#1) 2025 HIB Vaccines Completed 11/07/1993, 06/1993, 01/20/1993, [...] 5 Years) and At-Risk Patients (6 to 49 Years) Aged Out No longer eligible based on patient's age to complete this topic RSV Immunization Patients Under 20 months Aged Out No longer eligible based on patient's age to complete this topic Varicella Vaccines Aged Out No longer eligible based on patient's age to complete this topic Care Teams Architect Intern Relationship Specialty Start Date End Date Ori Gonzales MD PCP - General 06/11/23
--- OUTSIDE RECORDS SUMMARY | 2025-06-01 08:21 | XMS_ITS | Patient Health Record ---
Author Organization [facility] Address [address] [place] [address] Care Team Providers Care Tube Heater Name Role Phone RODRIGO ESCOBAR Primary Care Provider Lenin Multani Unavailable [phone] Allergies Allergen (clinical drug ingredient) Drug/Non Drug Allergy documented on EMR Reaction Allergy Type Onset Date Status albuterol Albuterol Chest Spasm Drug Allergy Activ e omeprazole Omeprazole Dizziness Drug Allergy Activ e Results Component Value Reference Range Notes DONOR Syphilis (T pallidum)- 527326 Reviewed date:08/20/2024 07:52:54 AM Interpretation: Performing Lab:[facility], [address], [place], Phone - [phone], Director - Jaz Notes/Report: Clinical Information:SRC:UR SRC:UR DONOR Syphilis (T pallidum) Non Reactive Non Reactive Test performed with [employer] Syphilis (T pallidum)-G kit. Testosterone-[id number] Reviewed date:08/20/2024 07:49:56 AM Interpretation: Performing Lab:[facility] [place], [address], [place], Phone - [phone], Director - Jaz Notes/Report: Clinical Information:SRC:UR SRC:UR Testosterone 369 264-916 ng/dL Adult male reference interval is based on a population of healthy nonobese males (BMI <30) between 19 and 39 years old. kelle Beal.al. JCEM 2017,102;5882-5826. PMID: 43794308. HIV-1/HIV-2 Qualitative RNA- 332244 Reviewed date:08/20/2024 07:49:46 AM Interpretation: Performing Lab:[facility] [place], [address] [facility], Phone - [phone], [facility] Notes/Report: Clinical Information:SRC:UR SRC:UR HIV-1 RNA Non Reactive Non Reactive HIV-2 RNA Non Reactive Non Reactive TSH-[id number] Reviewed date:08/20/2024 07:49:39 AM Interpretation: Performing Lab:[facility] [address], Phone - [phone], Director - [place]Mohini Notes/Report: Clinical Information:SRC:UR SRC:UR TSH 0.995 0.450-4.500 uIU/mL Magnesium-937851 Reviewed date:08/20/2024 07:49:37 AM Interpretation: Performing Lab:[facility], Phone - [phone], [facility] - [place]Mohini Notes/Report: Clinical Information:SRC:UR SRC:UR Magnesium 2.1 1.6-2.3 mg/dL Hepatitis B Surf Ab Quant-00 6530 Reviewed date:08/20/2024 07:50:21 AM Interpretation: Performing Lab:[facility] [address], Phone - [phone], [facility] Notes/Report: Clinical Information:SRC:UR SRC:UR Hepatitis B Surf Ab Quant 12.5 Immunity>10 mIU /mL Status of Immunity Anti-HBs Level Inconsistent with Immunity 0.0 - 10.0 Consistent with Immunity >10.0 Neisseria gonorrhoeae, BABS-1 69863 Reviewed date:08/20/2024 07:50:27 AM Interpretation: Performing Lab:[facility] [address], Phone - [phone], Director [facility] Notes/Report: Clinical Information:SRC:UR SRC:UR Neisseria gonorrhoeae, BABS Negative Negative Chlamydia trachomatis, BABS-1 76356 Reviewed date:08/20/2024 07:50:32 AM Interpretation: Performing Lab:[facility] [address], Phone - [phone], Director Jaz Notes/Report: Clinical Information:SRC:UR SRC:UR Chlamydia trachomatis, BABS Negative Negative Lipid Panel-[id number] Reviewed date:08/20/2024 07:50:36 AM Interpretation: Performing Lab:[facility], [address] [place] [address], [place], Phone - [phone], Director - Jaz Notes/Report: Clinical Information:SRC:UR SRC:UR Cholesterol, Total 135 100-199 mg/dL Triglycerides 59 0-149 mg/dL HDL Cholesterol 51 >39 mg/dL VLDL Cholesterol Cj 13 5-40 mg/dL LDL Chol Calc (NIH) 71 0-99 mg/dL Comp. Metabolic Panel (14)-3 Reviewed date:08/20/2024 07:50:39 AM Interpretation: Performing Lab:[facility], [address] [facility], [place], Phone - [phone], Director - Jaz Notes/Report: Clinical Information:SRC:UR SRC:UR Glucose 95 70-99 [...] 0-40 IU/L ALT (SGPT) 36 0-44 IU/L Homocyst(e)ine-502840 Reviewed date:04/14/2025 12:41:50 PM Interpretation: Performing Lab:[facility], [facility], [place], Phone - [phone], Director - Jaz Notes/Report: Test(s) 218726-Xnjcjmhzzlejx Acid, Serum was developed and its performance characteristics determined by [facility]. It has not been cleared or approved by the Food and Drug Administration. Homocyst(e)ine 9.9 0.0-14.5 umol/L Methylmalonic Acid, Serum- 6961 Reviewed date:04/14/2025 12:42:22 PM Interpretation: Performing Lab:[facility], [address] [place] [address], Phone - [phone], Director [facility] Notes/Report: Test(s) 910562-Wkafkcupevegy Acid, Serum was developed and its performance characteristics determined by [facility]. It has not been cleared or approved by the Food and Drug Administration. Methylmalonic Acid, Serum 100 0-378 nmol/L Comp. Metabolic Panel (14)-3 05107 Reviewed date:04/14/2025 12:42:06 PM Interpretation: Performing Lab:[facility] [place], [address] [place] [address], Phone - [phone], Director - [facility] Notes/Report: Test(s) 923486-Idsbtjtlixmlm Acid, Serum was developed and its performance characteristics determined by [facility]. It has not been cleared or approved by the Food and Drug Administration. Glucose 91 70-99 mg/dL BUN 12 6-20 mg/dL Creatinine 1.04 0.76-1.27 mg/dL eGFR 98 >59 mL/min/1.73 BUN/Creatinine Ratio 12 9-20 Sodium 142 134-144 mmol/L Potassium 4.4 3.5-5.2 mmol/L Chloride 102 96-106 mmol/L Carbon Dioxide, Total 23 20-29 mmol/L Calcium 9.6 8.7-10.2 mg/dL Protein, Total 7.2 6.0-8.5 g/dL Albumin 4.7 4.1-5.1 g/dL Globulin, Total 2.5 1.5-4.5 g/dL Bilirubin, Total 0.6 0.0-1.2 mg/dL Alkaline Phosphatase 97 44-121 IU/L AST (SGOT) 21 0-40 IU/L ALT (SGPT) 28 0-44 IU/L Lipid Panel-[id number] Reviewed date:04/14/2025 12:42:13 PM Interpretation: Performing Lab:[facility], [address] [place] [address], Phone - [phone], Director - Jaz Notes/Report: Test(s) 635992-Isqhvunmjolvs Acid, Serum was developed and its performance characteristics determined by [facility]. It has not been cleared or approved by the Food and Drug Administration. Cholesterol, Total 206 100-199 mg/dL Triglycerides 151 0-149 mg/dL HDL Cholesterol 60 >39 mg/dL VLDL Cholesterol Cj 26 5-40 mg/dL LDL Chol Calc ([facility]) 120 0-99 mg/dL CBC with Diff, Platelet, NLR -[id number] Reviewed date:04/14/2025 12:41:55 PM Interpretation: Performing Lab:[facility], [address], [place], Phone - [phone], Director - Jaz Notes/Report: Test(s) 540311-Qygjsovaaqnze Acid, Serum was developed and its performance characteristics determined by [facility]. It has not been cleared or approved by the Food and Drug Administration. WBC 7.9 3.4-10.8 x10E3/uL RBC 5.51 4.14-5.80 x10E6/uL Hemoglobin 15.9 13.0-17.7 g/dL Hematocrit 47.0 37.5-51.0 % MCV 85 79-97 fL MCH 28.9 26.6-33.0 pg MCHC 33.8 31.5-35.7 g/dL RDW 12.2 11.6-15.4 % Platelets 243 150-450 x10E3/uL Neutrophils 57 Not Estab. % Lymphs 33 Not Estab. % Monocytes 8 Not Estab. % Eos 1 Not Estab. % Basos 0 Not Estab. % Neutrophils (Absolute) 4.5 1.4-7.0 x10E3/uL Lymphs (Absolute) 2.6 0.7-3.1 x10E3/uL Neut/Lymph Ratio 1.7 0.0-2.9 ratio Published COVID-19 studies suggest: Low likelihood of severe COVID-19 disease progression 0.0-2.9 High likelihood of severe COVID-19 disease progression >4.9 Monocytes(Absolute) 0.6 0.1-0.9 x10E3/uL Eos (Absolute) 0.1 0.0-0.4 x10E3/uL Baso (Absolute) 0.0 0.0-0.2 x10E3/uL Immature Granulocytes 1 Not Estab. % Immature Grans (Abs) 0.1 0.0-0.1 x10E3/uL Vitamin B12 and Folate-58475 0 Reviewed date:04/14/2025 12:42:01 PM Interpretation: Performing Lab:[facility], [address], [place], Phone - [phone], Director - Jaz Notes/Report: Test(s) 709884-Ijpznodxepnza Acid, Serum was developed and its performance characteristics determined by [facility]. It has not been cleared or approved by the Food and Drug Administration. Vitamin B12 904 394-1936 pg/mL Folate (Folic Acid), Serum 11.1 >3.0 ng/mL A serum folate concentration of less than 3.1 ng/mL is considered to represent clinical deficiency. Reason For Referral Reason Please evaluate and treat Diagnosis 1 Palpitations (R00.2) Referral Organization [facility] Referring Provider First Name WALLACE Referring Provider Last Name [facility] Referred Provider Specialty Cardiology Referral Priority Routine Reason GERD please evalua te and treat Diagnosis 1 Gastroesophageal ref lux disease, unspecified whether esophagitis present (K21.9) Referral Organization [facility] Referring Provider First Name WALLACE Referring Provider Last Name [facility] Referring Provider [facility] Referred Provider Specialty Gastroentero logy General Notes Referral was faxed [facility]. Please contact patient for scheduling., Maulik Carmonaida 01/18/2025 09:54:34 AM > Referral Priority Routine Reason please evaluate and treat Diagnosis 1 Mild intermittent as thma without complication (J45.20) Referral Organization [facility] Referring Provider First Name Lenin Referring Provider Last Name Nerissa Referred Provider Specialty Pulmonology Referral Priority Routine Medications Medication SIG (Take, Route, Frequency, Duration) Notes Start Date End Date Status Omeprazole 20 MG 1 capsule 30 minutes before morning meal Orally Once a day; Duration: 30 days 10/07/2024 Not-Taking hydrOXYzine HCl 25 MG 1 tablet as needed Orally Once a day; Duration: 30 days 10/07/2024 Active Albuterol Sulfate HFA 108 (90 Base) MCG/ACT 1 puff as needed Inhalation every 4 hrs; Duration: 30 days Not-Taking Viagra 25 MG 1 tablet as needed Orally Once a day; Duration: 30 day(s) 10/29/2022 Not-Taking QC Famotidine Acid Hand Riveter 10 MG 1 tablet as needed Orally Twice a day; Duration: 30 days 11/26/2024 Active Atrovent HFA 17 MCG/ACT 2 puffs as neede d Inhalation every 6 hrs; Duration: 30 days 04/27/2025 Active Aspirin 81 81 MG 1 tablet Orally [...] been since you last smoked? 3-6 months AUDIT-C (Standard) Question Answer Notes Did you have a drink contain ing alcohol in the past year? Yes How often did you have a dri nk containing alcohol in the past year? 2 to 4 times a month (2 points) How many drinks did you have on a typical day when you were drinking in the past year? 5 or 6 drinks (2 points) How often did you have six o r more drinks on one occasion in the past year? 2 to 4 times a month (2 points) Points 6 Interpretation Positive Section Notes: Patient was heavy drinker an [...] Notes Problem Obesity due to excess calories (462145167) Other obesity due to excess calories (E66.09) Active confirmed Problem Cannabis abuse (88622481) Cannabis abuse, uncomplicated (F12.10) Active confirmed Problem Erectile dysfunction (disorder) (229225118) Male erectile dysfunction, unspecified (N52.9) Active confirmed Problem Painful micturition (48965895) Painful micturition, unspecified (R30.9) Active confirmed Problem Gastroesophageal reflux disease without esophagitis (733736519) Gastroesophageal reflux disease without esophagitis (K21.9) Active confirmed Problem Generalized anxiety disorder (64643397) MARYLIN (generalized anxiety disorder) (F41.1) Active confirmed Problem Gastroesophageal reflux disease (420238405) Gastroesophageal reflux disease, unspecified whether esophagitis present (K21.9) Active confirmed Problem Mild intermittent asthma (365130073) Mild intermittent asthma without complication (J45.20) Active confirmed Vital Signs Heart Rate 70 /min 04/07/2025 Temperature 97.4 degrees Fahrenheit 04/07/2025 Oximetry 98 % 04/07/2025 Blood pressure diastolic 72 mm Hg 04/07/2025 Height 71 in 04/07/2025 Blood pressure systolic 120 mm Hg 04/07/2025 Weight 236.8 lbs 04/07/2025 BMI 33.02 kg/m2 04/07/2025 Encounters Encounter Location Date Provider Diagnosis [address] [address] 06/30/2024 Lenin Garcíaum [address] [address] 07/31/2024 WALLACEJOSELO MORALESL Male erectile dysfunction, unspecified N52.9 ; Palpitations R00.2 ; Mild intermittent asthma, uncomplicated J45.20 ; Cannabis abuse, uncomplicated F12.10 ; Encounter for screening for infections with a predominantly sexual mode of transmission Z11.3 and Encounter for screening for cardiovascular disorders Z13.[address] [address] 09/22/2024 Ghadeer Bhargavloum Palpitation R00.2 ; Cannabis abuse, uncomplicated F12.10 and Mild intermittent asthma, uncomplicated J45.[address] [address] 10/07/2024 Ghadeer Mazloum Gastroesophageal ref lux disease without esophagitis K21.9 and MARYLIN (generalized anxiety disorder) F41.[address] [address] 11/04/2024 WALLACE GUL Gastroesophageal ref lux disease without esophagitis K21.9 ; MARYLIN (generalized anxiety disorder) F41.1 ; Palpitations R00.2 ; Other obesity due to excess calories E66.09 ; Dietary counseling and surveillance Z71.3 and Cannabis abuse, uncomplicated F12.[address] [place] [address] 01/15/2025 [facility] Gastroesophageal ref lux disease without esophagitis K21.9 [facility] [address] [place] [address] 04/07/2025 Lenni Multani Annual visit for [facility] adult medical examination without abnormal findings Z00.00 ; Gastroesophageal reflux disease without esophagitis K21.9 ; Encounter for screening for cardiovascular disorders Z13.6 ; Marijuana use F12.90 ; Obesity, class 1 E66.811 ; Dietary counseling and surveillance Z71.3 and Mild intermittent asthma, uncomplicated J45.20 [facility] [address] [place] [address] 08/10/2024 [facility] [address] [place] [address] 08/13/2024 [facility] [address] [place] [address] 01/18/2025 [facility] [address] [place] [address] 02/26/2025 Lenin Multani Shortness of breath R06.02 [facility] [address] [place] [address] 04/15/2025 [facility] [address] [place] [address] 09/16/2024 [facility] [address] [place] [address] 09/16/2024 [facility] [address] [place] [address] 09/17/2024 [facility] [address] [place] [address] 09/18/2024 [facility] [address] [place] [address] 10/05/2024 [facility] [address] [place] [address] 10/05/2024 [facility] [address] [place] [address] 10/05/2024 [facility] [address] [place] [address] 10/12/2024 [facility] [address] [place] [address] 10/14/2024 [facility] [address] [place] [address] 11/26/2024 [facility] Gastroesophageal ref lux disease without esophagitis K21.[address] [place] [address] [facility] [address] [place] [address] 11/26/2024 [facility] [address] [place] [address] 12/11/2024 [facility] [address] [place] [address] 03/21/2025 [facility] [address] [place] [address] 03/22/2025 [facility] [address] [place] [address] 03/24/2025 [facility] [address] [place] [address] 03/31/2025 [facility] [address] [place] [address] 04/02/2025 [facility] [address] [place] [address] 04/02/2025 [facility] [address] [place] [address] 04/02/2025 [facility] [address] [place] [address] 04/07/2025 [facility] [address] [place] [address] 04/08/2025 [facility] [address] [place] [address] 04/09/2025 [facility] [address] [place] [address] 04/09/2025 [facility] [address] [place] [address] 04/13/2025 [facility] [address] [place] [address] 04/13/2025 [facility] [address] [place] [address] 04/13/2025 [facility] [address] [place] [address] 04/13/2025 [facility] [address] [place] [address] 04/13/2025 [facility] [address] [place] [address] 04/13/2025 [facility] [address] [place] [address] 04/18/2025 [facility] Mild intermittent asthma, uncomplicated J45.20 [facility] [address] [place] [address] 04/28/2025 [facility] [address] [place] [address] 04/29/2025 [facility] [address] [place] [address] 05/07/2025 Ghadeer Mazloum [facility] [address] [place] [address] 05/07/2025 [facility] [place] [address] 05/07/2025 [facility] [address] [place] [address] 05/12/2025 Lenin Multani Mild intermittent as thma without complication J45.[address] [place] [address] 05/27/2025 RODRIGO ESCOBAR [address] [place] [address] 05/27/2025 Lenin Multani Assessments Encounter Date Diagnosis (ICD Code) Assessment [...] 02/26/2025 Shortness of breath (ICD-10 - R06.02) 07/31/2024 Male erectile dysfunction, unspecified (ICD-10 - N52.9) Mr. Hollins is a 34-year-old gentleman with male erectile dysfunction and mild intermittent asthma here for follow up. Plan is as follows: Palpitations. Advised not to consume energy drinks, high calorie foods and preexercise drinks which can lead to palpitation. Encouraged to avoid caffeinated beverages and smoking. Appropriate hydration he can use xavw-exq-uaiorls magnesium. Electrocardiogram was done today which is normal sinus rhythm with no acute ST or T wave changes. We will do 48 hours Holter monitor for further evaluation. We also ordered blood work to rule out any electrolyte abnormality. He can use cyhy-xyy-twfzdge magnesium. Hyperlipidemia. Dietary restrictions advised. Recheck lipid [...] this note under HIPAA compliance and under [place] law mandated for scribe services. Patient aware [...] and smoking. Appropriate hydration he can use bhyr-jyb-wqqzstx magnesium. Electrocardiogram was done today which is normal sinus rhythm with no acute ST or T wave changes. We will do 48 hours Holter monitor for further evaluation. We also ordered blood work to rule out any electrolyte abnormality. He can use lkeo-xjc-wwowexn magnesium. Hyperlipidemia. Dietary restrictions advised. Recheck lipid [...] this note under HIPAA compliance and under [place] law mandated for scribe services. Patient aware [...] He has an appt this week with [facility]. Started patient on Hydroxyzine for anxiety [...] He has an appt this week with [facility]. Started patient on Hydroxyzine for anxiety until he sees psychiatry this week for further evaluation. I have rendered the services for this patient under direct supervision of Dr. Escobar, who did not see the patient but was available upon request 11/04/2024 Gastroesophageal reflux disease without esophagitis (ICD-10 [...] and most likely erectile dysfunction as well. 04/07/2025 Gastroesophageal reflux disease without esophagitis (ICD-10 - K21.9) Mr. Hollins is a 34-year-old gentleman with male erectile dysfunction and mild intermittent asthma here for annual physical examination. Plan as follows GERD. He is currently following with GI at [facility]. Per record, patient will be undergoing a barium swallow, EGD to rule out any esophageal spasms or abnormalities. He was switched from omeprazole to famotidine, he did not start the medication yet and she is hesitant due to possible side effects. Advised patient on starting meedication and if he experiences any symptoms he should be contacting GI. Diet modification has been discussed with less spicy, greasy and fried food Episodes of chest pain and shortness of breath. He did have a prior workup of monitor and storage bin tender by the progress clerk and the results were unremarkable for any cardiac etiology. He is currently getting worked up for possible GI etiology. However we have placed an order for stress echo to rule out any cardiac problem. Pending test. He states that from some time to time he does experience sugar shock , does not measure his sugar. She admits that after eating high carb diet or meal. Did advise on small frequent meals throughout the day and avoid high carb unit. Did advise some monitoring sugar at home as if it does drop below 70 with symptoms then we will consider referral to endocrinology for further workup of secondary causes of hypoglycemia. He does also mention At one point she was experiencing lightheadedness with standing, to note episode was happening during the periods when he was smoking marijuana as he does not drink water when he smokes. Advised patient on keeping up with hydration he can also add electrolytes. He does mention that it has resolved eventually. Asthma. Controlled. Not currently on medications, denies any flare ups Marijuana use. Abstinence discussed. Complications have been discussed. Alcohol use. He has an increased risk for alcohol dependency. Abstinence is recommended. Complications have beeen discussed as well. If this continues to be a problem then at that point we will discuss the different treatment modalities if patient is interested Obesity/ diet surveillance. I have discussed with the patient on following a low carb and low-fat diet with increased fiber. Discussed the complication of obesity did also discuss less than modification especially given ongoing GERD problem which exacerbates with greasy and fried food. Encouraged exercising with moderation and goal is to lose 4-6lbs a month. Vision. He is up to date Dermatology. No suspicious lesions at this point Dentist. Every 6 months Screening for cardiovascular. Ordered lipid, TSH, comp He is up-to-date on age specific screenings and vaccinations General concerns have been discussed I have rendered the services for this patient under direct supervision of Dr. Escobar, who did not see the patient but was available upon request 04/07/2025 Annual visit for general adult medical examination without abnormal findings (ICD-10 - Z00.00) Mr. Hollins is a 34-year-old gentleman with male erectile dysfunction and mild intermittent asthma here for annual physical examination. Plan as follows GERD. He is currently following with GI at [facility]. Per record, patient will be undergoing a barium swallow, EGD to rule out any esophageal spasms or abnormalities. He was switched from omeprazole to famotidine, he did not start the medication yet and she is hesitant due to possible side effects. Advised patient on starting meedication and if he experiences any symptoms he should be contacting GI. Diet modification has been discussed with less spicy, greasy and fried food Episodes of chest pain and shortness of breath. He did have a prior workup of monitor and storage bin tender by the progress clerk and the results were unremarkable for any cardiac etiology. He is currently getting worked up for possible GI etiology. However we have placed an order for stress echo to rule out any cardiac problem. Pending test. He states that from some time to time he does experience sugar shock , does not measure his sugar. She admits that after eating high carb diet or meal. Did advise on small frequent meals throughout the day and avoid high carb unit. Did advise some monitoring sugar at home as if it does drop below 70 with symptoms then we will consider referral to endocrinology for further workup of secondary causes of hypoglycemia. He does also mention At one point she was experiencing lightheadedness with standing, to note episode was happening during the periods when he was smoking marijuana as he does not drink water when he smokes. Advised patient on keeping up with hydration he can also add electrolytes. He does mention that it has resolved eventually. Asthma. Controlled. Not currently on medications, denies any flare ups Marijuana use. Abstinence discussed. Complications have been discussed. Alcohol use. He has an increased risk for alcohol dependency. Abstinence is recommended. Complications have beeen discussed as well. If this continues to be a problem then at that point we will discuss the different treatment modalities if patient is interested Obesity/ diet surveillance. I have discussed with the patient on following a low carb and low-fat diet with increased fiber. Discussed the complication of obesity did also discuss less than modification especially given ongoing GERD problem which exacerbates with greasy and fried food. Encouraged exercising with moderation and goal is to lose 4-6lbs a month. Vision. He is up to date Dermatology. No suspicious lesions at this point Dentist. Every 6 months Screening for cardiovascular. Ordered lipid, TSH, comp He is up-to-date on age specific screenings and vaccinations General concerns have been discussed I have rendered the services for this patient under direct supervision of Dr. Escobar, who did not see the patient but was available upon request 04/18/2025 Mild intermittent asthma, uncomplicated (ICD-10 - J45.20) 05/12/2025 Mild intermittent asthma without complication (ICD-10 - J45.20) 07/31/2024 Mild intermittent asthma, uncomplicated (ICD-10 - J45.20) Mr. Hollins is a 34-year-old gentleman with male erectile dysfunction and mild intermittent asthma here for follow up. Plan is as follows: Palpitations. Advised not to consume energy drinks, high calorie foods and preexercise drinks which can lead to palpitation. Encouraged to avoid caffeinated beverages and smoking. Appropriate hydration he can use irah-mpv-xgiehdb magnesium. Electrocardiogram was done today which is normal sinus rhythm with no acute ST or T wave changes. We will do 48 hours Holter monitor for further evaluation. We also ordered blood work to rule out any electrolyte abnormality. He can use shgx-hzq-qjfrmgs magnesium. Hyperlipidemia. Dietary restrictions advised. Recheck lipid [...] this note under HIPAA compliance and under [place] law mandated for scribe services. Patient aware of service. Verbal consent and written consent taken from the patient. Patient understands and verbalizes understanding of the scribes services and all questions answered regarding scribes services. Patient agrees to use of scribes services. 04/07/2025 Encounter for screening for cardiovascular disorders (ICD-10 - Z13.6) Mr. Hollins is a 34-year-old gentleman with male erectile dysfunction and mild intermittent asthma here for annual physical examination. Plan as follows GERD. He is currently following with GI at [facility]. Per record, patient will be undergoing a barium swallow, EGD to rule out any esophageal spasms or abnormalities. He was switched from omeprazole to famotidine, he did not start the medication yet and she is hesitant due to possible side effects. Advised patient on starting meedication and if he experiences any symptoms he should be contacting GI. Diet modification has been discussed with less spicy, greasy and fried food Episodes of chest pain and shortness of breath. He did have a prior workup of monitor and storage bin tender by the progress clerk and the results were unremarkable for any cardiac etiology. He is currently getting worked up for possible GI etiology. However we have placed an order for stress echo to rule out any cardiac problem. Pending test. He states that from some time to time he does experience sugar shock , does not measure his sugar. She admits that after eating high carb diet or meal. Did advise on small frequent meals throughout the day and avoid high carb unit. Did advise some monitoring sugar at home as if it does drop below 70 with symptoms then we will consider referral to endocrinology for further workup of secondary causes of hypoglycemia. He does also mention At one point she was experiencing lightheadedness with standing, to note episode was happening during the periods when he was smoking marijuana as he does not drink water when he smokes. Advised patient on keeping up with hydration he can also add electrolytes. He does mention that it has resolved eventually. Asthma. Controlled. Not currently on medications, denies any flare ups Marijuana use. Abstinence discussed. Complications have been discussed. Alcohol use. He has an increased risk for alcohol dependency. Abstinence is recommended. Complications have beeen discussed as well. If this continues to be a problem then at that point we will discuss the different treatment modalities if patient is interested Obesity/ diet surveillance. I have discussed with the patient on following a low carb and low-fat diet with increased fiber. Discussed the complication of obesity did also discuss less than modification especially given ongoing GERD problem which exacerbates with greasy and fried food. Encouraged exercising with moderation and goal is to lose 4-6lbs a month. Vision. He is up to date Dermatology. No suspicious lesions at this point Dentist. Every 6 months Screening for cardiovascular. Ordered lipid, TSH, comp He is up-to-date on age specific screenings and vaccinations General concerns have been discussed I have rendered the services for this patient under direct supervision of Dr. Escobar, who did not see the patient but was available upon request 09/22/2024 Cannabis abuse, uncomplicated (ICD-10 - F12.10) [...] patient but was available upon request 11/04/2024 Other obesity due to excess calories [...] most likely erectile dysfunction as well. 07/31/2024 Cannabis abuse, uncomplicated (ICD-10 - F12.10) Mr. Hollins is a 34-year-old gentleman with male erectile dysfunction and mild intermittent asthma here for follow up. Plan is as follows: Palpitations. Advised not to consume energy drinks, high calorie foods and preexercise drinks which can lead to palpitation. Encouraged to avoid caffeinated beverages and smoking. Appropriate hydration he can use qlys-tdo-mthvzrl magnesium. Electrocardiogram was done today which is normal sinus rhythm with no acute ST or T wave changes. We will do 48 hours Holter monitor for further evaluation. We also ordered blood work to rule out any electrolyte abnormality. He can use hakj-hne-zfbvolj magnesium. Hyperlipidemia. Dietary restrictions advised. Recheck lipid [...] this note under HIPAA compliance and under [place] law mandated for scribe services. Patient aware of service. Verbal consent and written consent taken from the patient. Patient understands and verbalizes understanding of the scribes services and all questions answered regarding scribes services. Patient agrees to use of scribes services. 04/07/2025 Marijuana use (ICD-10 - F12.90) Mr. Hollins is a 34-year-old gentleman with male erectile dysfunction and mild intermittent asthma here for annual physical examination. Plan as follows GERD. He is currently following with GI at [facility]. Per record, patient will be undergoing a barium swallow, EGD to rule out any esophageal spasms or abnormalities. He was switched from omeprazole to famotidine, he did not start the medication yet and she is hesitant due to possible side effects. Advised patient on starting meedication and if he experiences any symptoms he should be contacting GI. Diet modification has been discussed with less spicy, greasy and fried food Episodes of chest pain and shortness of breath. He did have a prior workup of monitor and storage bin tender by the progress clerk and the results were unremarkable for any cardiac etiology. He is currently getting worked up for possible GI etiology. However we have placed an order for stress echo to rule out any cardiac problem. Pending test. He states that from some time to time he does experience sugar shock , does not measure his sugar. She admits that after eating high carb diet or meal. Did advise on small frequent meals throughout the day and avoid high carb unit. Did advise some monitoring sugar at home as if it does drop below 70 with symptoms then we will consider referral to endocrinology for further workup of secondary causes of hypoglycemia. He does also mention At one point she was experiencing lightheadedness with standing, to note episode was happening during the periods when he was smoking marijuana as he does not drink water when he smokes. Advised patient on keeping up with hydration he can also add electrolytes. He does mention that it has resolved eventually. Asthma. Controlled. Not currently on medications, denies any flare ups Marijuana use. Abstinence discussed. Complications have been discussed. Alcohol use. He has an increased risk for alcohol dependency. Abstinence is recommended. Complications have beeen discussed as well. If this continues to be a problem then at that point we will discuss the different treatment modalities if patient is interested Obesity/ diet surveillance. I have discussed with the patient on following a low carb and low-fat diet with increased fiber. Discussed the complication of obesity did also discuss less than modification especially given ongoing GERD problem which exacerbates with greasy and fried food. Encouraged exercising with moderation and goal is to lose 4-6lbs a month. Vision. He is up to date Dermatology. No suspicious lesions at this point Dentist. Every 6 months Screening for cardiovascular. Ordered lipid, TSH, comp He is up-to-date on age specific screenings and vaccinations General concerns have been discussed I have rendered the services for this patient under direct supervision of Dr. Escobar, who did not see the patient but was available upon request 04/07/2025 Obesity, class 1 (ICD-10 - E66.811) Mr. Hollins is a 34-year-old gentleman with male erectile dysfunction and mild intermittent asthma here for annual physical examination. Plan as follows GERD. He is currently following with GI at [facility]. Per record, patient will be undergoing a barium swallow, EGD to rule out any esophageal spasms or abnormalities. He was switched from omeprazole to famotidine, he did not start the medication yet and she is hesitant due to possible side effects. Advised patient on starting meedication and if he experiences any symptoms he should be contacting GI. Diet modification has been discussed with less spicy, greasy and fried food Episodes of chest pain and shortness of breath. He did have a prior workup of monitor and storage bin tender by the progress clerk and the results were unremarkable for any cardiac etiology. He is currently getting worked up for possible GI etiology. However we have placed an order for stress echo to rule out any cardiac problem. Pending test. He states that from some time to time he does experience sugar shock , does not measure his sugar. She admits that after eating high carb diet or meal. Did advise on small frequent meals throughout the day and avoid high carb unit. Did advise some monitoring sugar at home as if it does drop below 70 with symptoms then we will consider referral to endocrinology for further workup of secondary causes of hypoglycemia. He does also mention At one point she was experiencing lightheadedness with standing, to note episode was happening during the periods when he was smoking marijuana as he does not drink water when he smokes. Advised patient on keeping up with hydration he can also add electrolytes. He does mention that it has resolved eventually. Asthma. Controlled. Not currently on medications, denies any flare ups Marijuana use. Abstinence discussed. Complications have been discussed. Alcohol use. He has an increased risk for alcohol dependency. Abstinence is recommended. Complications have beeen discussed as well. If this continues to be a problem then at that point we will discuss the different treatment modalities if patient is interested Obesity/ diet surveillance. I have discussed with the patient on following a low carb and low-fat diet with increased fiber. Discussed the complication of obesity did also discuss less than modification especially given ongoing GERD problem which exacerbates with greasy and fried food. Encouraged exercising with moderation and goal is to lose 4-6lbs a month. Vision. He is up to date Dermatology. No suspicious lesions at this point Dentist. Every 6 months Screening for cardiovascular. Ordered lipid, TSH, comp He is up-to-date on age specific screenings and vaccinations General concerns have been discussed I have rendered the services for this patient under direct supervision of Dr. Escobar, who did not see the patient but was available upon request 07/31/2024 Encounter for screening for infections with [...] and smoking. Appropriate hydration he can use flyj-wtu-mymkimp magnesium. Electrocardiogram was done today which is normal sinus rhythm with no acute ST or T wave changes. We will do 48 hours Holter monitor for further evaluation. We also ordered blood work to rule out any electrolyte abnormality. He can use sohv-nlz-nbzlcyh magnesium. Hyperlipidemia. Dietary restrictions advised. Recheck lipid [...] this note under HIPAA compliance and under [place] law mandated for scribe services. Patient aware [...] and smoking. Appropriate hydration he can use ptso-uyg-pynihts magnesium. Electrocardiogram was done today which is normal sinus rhythm with no acute ST or T wave changes. We will do 48 hours Holter monitor for further evaluation. We also ordered blood work to rule out any electrolyte abnormality. He can use jbsi-pvw-dgdyvzq magnesium. Hyperlipidemia. Dietary restrictions advised. Recheck lipid [...] this note under HIPAA compliance and under [place] law mandated for scribe services. Patient aware [...] and most likely erectile dysfunction as well. 04/07/2025 Dietary counseling and surveillance (ICD-10 - Z71.3) Mr. Hollins is a 34-year-old gentleman with male erectile dysfunction and mild intermittent asthma here for annual physical examination. Plan as follows GERD. He is currently following with GI at [facility]. Per record, patient will be undergoing a barium swallow, EGD to rule out any esophageal spasms or abnormalities. He was switched from omeprazole to famotidine, he did not start the medication yet and she is hesitant due to possible side effects. Advised patient on starting meedication and if he experiences any symptoms he should be contacting GI. Diet modification has been discussed with less spicy, greasy and fried food Episodes of chest pain and shortness of breath. He did have a prior workup of monitor and storage bin tender by the progress clerk and the results were unremarkable for any cardiac etiology. He is currently getting worked up for possible GI etiology. However we have placed an order for stress echo to rule out any cardiac problem. Pending test. He states that from some time to time he does experience sugar shock , does not measure his sugar. She admits that after eating high carb diet or meal. Did advise on small frequent meals throughout the day and avoid high carb unit. Did advise some monitoring sugar at home as if it does drop below 70 with symptoms then we will consider referral to endocrinology for further workup of secondary causes of hypoglycemia. He does also mention At one point she was experiencing lightheadedness with standing, to note episode was happening during the periods when he was smoking marijuana as he does not drink water when he smokes. Advised patient on keeping up with hydration he can also add electrolytes. He does mention that it has resolved eventually. Asthma. Controlled. Not currently on medications, denies any flare ups Marijuana use. Abstinence discussed. Complications have been discussed. Alcohol use. He has an increased risk for alcohol dependency. Abstinence is recommended. Complications have beeen discussed as well. If this continues to be a problem then at that point we will discuss the different treatment modalities if patient is interested Obesity/ diet surveillance. I have discussed with the patient on following a low carb and low-fat diet with increased fiber. Discussed the complication of obesity did also discuss less than modification especially given ongoing GERD problem which exacerbates with greasy and fried food. Encouraged exercising with moderation and goal is to lose 4-6lbs a month. Vision. He is up to date Dermatology. No suspicious lesions at this point Dentist. Every 6 months Screening for cardiovascular. Ordered lipid, TSH, comp He is up-to-date on age specific screenings and vaccinations General concerns have been discussed I have rendered the services for this patient under direct supervision of Dr. Escobar, who did not see the patient but was available upon request 04/07/2025 Mild intermittent asthma, uncomplicated (ICD-10 - J45.20) Mr. Hollins is a 34-year-old gentleman with male erectile dysfunction and mild intermittent asthma here for annual physical examination. Plan as follows GERD. He is currently following with GI at [facility]. Per record, patient will be undergoing a barium swallow, EGD to rule out any esophageal spasms or abnormalities. He was switched from omeprazole to famotidine, he did not start the medication yet and she is hesitant due to possible side effects. Advised patient on starting meedication and if he experiences any symptoms he should be contacting GI. Diet modification has been discussed with less spicy, greasy and fried food Episodes of chest pain and shortness of breath. He did have a prior workup of monitor and storage bin tender by the progress clerk and the results were unremarkable for any cardiac etiology. He is currently getting worked up for possible GI etiology. However we have placed an order for stress echo to rule out any cardiac problem. Pending test. He states that from some time to time he does experience sugar shock , does not measure his sugar. She admits that after eating high carb diet or meal. Did advise on small frequent meals throughout the day and avoid high carb unit. Did advise some monitoring sugar at home as if it does drop below 70 with symptoms then we will consider referral to endocrinology for further workup of secondary causes of hypoglycemia. He does also mention At one point she was experiencing lightheadedness with standing, to note episode was happening during the periods when he was smoking marijuana as he does not drink water when he smokes. Advised patient on keeping up with hydration he can also add electrolytes. He does mention that it has resolved eventually. Asthma. Controlled. Not currently on medications, denies any flare ups Marijuana use. Abstinence discussed. Complications have been discussed. Alcohol use. He has an increased risk for alcohol dependency. Abstinence is recommended. Complications have beeen discussed as well. If this continues to be a problem then at that point we will discuss the different treatment modalities if patient is interested Obesity/ diet surveillance. I have discussed with the patient on following a low carb and low-fat diet with increased fiber. Discussed the complication of obesity did also discuss less than modification especially given ongoing GERD problem which exacerbates with greasy and fried food. Encouraged exercising with moderation and goal is to lose 4-6lbs a month. Vision. He is up to date Dermatology. No suspicious lesions at this point Dentist. Every 6 months Screening for cardiovascular. Ordered lipid, TSH, comp He is up-to-date on age specific screenings and vaccinations General concerns have been discussed I have rendered the services for this patient under direct supervision of Dr. Escobar, who did not see the patient but was available upon request Plan Of Treatment Pending Test Test Name Order Date Holter Test 07/31/2024 CHLAMYDIA GC AMP PROBE, URINE 11/21/2023 HEPATITIS B SURFACE ANTIGEN 11/21/2023 HIV ANTIBODY/ANTIGEN, 4TH GENERATION 02/2024 LIPID PANEL 03/26/2023 SYPHILIS TESTING 11/21/2023 Stress Echocardiogram 02/26/2025 CBC/Differential (No Platelet)-[id number] Next Appt Details Provider Name:RODRIGO ESCOBAR , 06/09/2025 02:30:00 PM, [address] [place] [address], [id number], Provider Name:Lenin ramos, 04/08/2026 02:00:00 PM, [address] [place] [address], [phone], Insurance Providers Payer Name Payer Address Payer Phone Subscriber Number Group Number Insured Name Patient Relationship to Insured Coverage Start Date Coverage End Date [facility] [address] [place] [address] [place] [id number] Isidoro Hollins Self - patient is the insured Medical (General) History Medical History History ICD Code Mild persistent asthma Male erectile dysfunction
--- OUTSIDE RECORDS SUMMARY | 2025-06-01 08:21 | XMS_ITS | Clinical Summary ---
Author Organization [facility] Address [address] [place] [address] Care Team Providers Care Field Merchandiser Name Role Phone Peter Rajan MD Primary Care Provider [phone] Allergies No known active allergies Medications Medication [...] 75 05/19/2021 10:36 AM EDT Temperature 36.7 C (98.1 F) 05/19/2021 10:35 AM EDT Respiratory Rate 16 05/19/2021 10:35 AM EDT [...] (1 - Tdap) 2011 Influenza Vaccine (#1) 2025 Pneumococcal Vaccine Aged Out No long er eligible based on patient's age to complete this topic RSV Ped < 20 months Aged Out No longe r eligible based on patient's age to complete this topic Care Teams Field Merchandiser Relationship Specialty Start Date End Date Peter Rajan MD [address] [place] [address] PCP - General Internal Medicine 05/19/21
--- NOTE | 2025-06-01 08:22 | A.OFFVIS_ITS ---
Vital Signs 06/01/25 08:23 Height 6 ft Weight 224 lb BMI 30.4 BP 101/57 L Blood Pressure Location Lt brachial Position Sitting Pulse 79 Pulse Oximetry (%) 95 Oxygen Delivery Method Room Air Intake Visit Reasons: 8 wks Gerd Intake Note: Patient follow up for 8 wks GERD and lab results. Patient cc: abdominal pain with bloating on and off, heartburn come and go and some swallowing difficulty. 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 He reports persistent reflux symptoms, including a daily bitter taste in his mouth, as well as ongoing concerns of dizziness, chest tightness, and angina- like pain during exercise. Since the last visit in March, he has experienced several changes in his symptoms and medication regimen. We switched from omeprazole to Pepcid 20 mg twice daily due to dizziness, but reports that Pepcid caused spasms. As a result, he returned to omeprazole, which has led to vision issues such as increased floaters and lines in his peripheral vision. He continues to have trouble swallowing occasionally. He notes that stress seems to trigger his symptoms. He describes experiencing chest tightness and lightheadedness while exercising, particularly on the treadmill. These symptoms subside when he stops the activi ty. He also reports using an asthma pump for throat tightness related to acid reflux, although he states he does not have asthma. He has noticed a drop in his blood oxygen levels when using the inhaler. His reflux symptoms appear to be impacting his daily life, affecting his exercise routine and causing ongoing discomfort. He mentions a recent change in his work environment, describing a reduction in stress related to supporting others and taking on their problems. He expresses hope that this change will positively impact his health. FORMERLY [facility], [facility]–1983 Medical History (Updated 06/01/25 @ 09:31 by Little Handy CNP) Anxiety Chest tightness Overweight Acid reflux Family History Father HTN (hypertension) Mother HTN (hypertension) Social History Household Members: Family Alcohol intake: current Patient Tobacco Use Status: Former Tobacco user Tobacco use type: Cigarette Substance Use Type: Marijuana Review of Systems Const Reports as per HPI ENT Reports as per HPI Card Reports as per HPI Resp Reports as per HPI GI Reports as per HPI Reports as per HPI Physical Exam Vital Signs: Last Vital Signs Pulse 79 06/01/25 08:23 BP 101/57 L 06/01/25 08:23 Pulse Ox 95 06/01/25 08:23 Oxygen Delivery Method Room Air 06/01/25 08:23 BMI result Body Mass Index 30.4 Const General: healthy appearing, no acute distress and well developed Nutritional Appearance: well nourished Orientation/consciousness: patient oriented x3 HEENT Head: Yes normal to inspection, Yes normocephalic and Yes atraumatic Face and sinus: Yes normal facial exam Eyes General: appearance normal, both eyes and all related structures Neck Neck: Yes normal visual inspection Resp Effort & Inspection: normal respiratory effort, able to speak in complete sentences, no tracheal deviation and symmetric chest movement Auscultation: clear to auscultation bilaterally Cardio Jugular venous distension: no JVD Rate: regular rate Rhythm: regular rhythm Heart sounds: S1 normal heart sound present, S2 normal heart sound present, no gallops and no murmurs GI Inspection: Yes normal to inspection and No distended Palpation (GI): Soft to palpation, not firm, nontender and No hepatosplenomegaly present Auscultation: normoactive bowel sounds Neuro General: patient oriented x3 Gait exam (Neuro): Normal gait present Psych Appearance: grossly normal Mental Status: mental status grossly normal Speech and movement: Normal speech and movement present Affect: Anxious affect present Attitude: cooperative Thought process: Normal thought process present Thought content: Normal thought content present Insight: Fair insight present (Psych) Judgement: Good judgement present (Psych) Assessment & Plan Assessment & Plan (1) Acid reflux: Code(s): K21.9 - Gastro-esophageal reflux disease without esophagitis Category: Medical Qualifiers: Esophagitis presence: esophagitis presence not specified Qualified Code(s): K21.9 - Gastro-esophageal reflux disease without esophagitis Plan: Persistent GERD symptoms including dysphagia and daily bitter taste despite PPI therapy. - Differential Diagnosis: Erosive Esophagitis, Non-erosive Reflux Disease, Functional Heartburn - Switch from omeprazole to pantoprazole 20 mg daily due to reported side effects - Lifestyle modifications: avoid triggers (alcohol, smoking, spicy foods, fatty foods, fried foods, late-night eating), eat smaller meals, remain upright after eating. - Proceed with scheduled barium swallow study on July 13 in the radiology department. ? Patient to call and confirm appointment time. Contact information provided. - Proceed with upper endoscopy (pending scheduling). - Follow up after barium swallow study and endoscopy. (2) Chest tightness: Code(s): R07.89 - Other chest pain Category: Medical Plan: Chest tightness and angina-like symptoms during exercise, particularly on the treadmill. PE exam reassuring. - Differential Diagnosis: Exercise-induced Angina, Exercise-induced Asthma, GERD-related Chest Pain, Anxiety-related Symptoms -Strongly encouraged to contact cardiology office after our visit. - For chest tightness or light-headedness, seek emergent evaluation to rule out cardiac issues. 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 (3) Anxiety: Code(s): F41.9 - Anxiety disorder, unspecified Category: Medical Plan: Stress as a trigger for GERD symptoms with work-related stress and interpersonal conflicts. - Differential Diagnosis: Generalized Anxiety Disorder, Adjustment Disorder, Stress-related Disorders - Consider therapy to help reduce anxiety and manage stress. - Continue exercise as tolerated; discontinue if experiencing pain or lack of energy. Plan Follow-up after endoscopy or sooner as needed Time: I spent a total of 30 minutes on the date of encounter which includes: Preparing to see the patient (reviewed previous documentation, test results and medical history) Performing a medically appropriate exam and/or evaluation Ordering medications, tests, and procedures Documenting clinical information in the health record Medications: New pantoprazole 20 mg PO DAILY 90 tabs 1RF Coding Level of Care Code Established Pt Est Pt Level 4 (58161) Patient Type Established Diagnoses Gastroesophageal reflux disease, unspecified whether esophagitis present K21.9 Esophagitis presence: esophagitis presence not specified Chest tightness R07.89 Anxiety F41.9
[2025-06-01 08:23] VITALS: BP 101/57; PULSE 79; O2SAT 95; BMI 30.4
== END 2025-06-01 09:21 | disposition home or self-care (01) ==
LOC: HO.HGI 08:16
PROVIDERS: PCP Hospitalist; Visit Provider Nurse Practitioner Family
DX: K21.9 Gastro-esophageal reflux disease without esophagitis (principal); R07.89 Other chest pain; F41.9 Anxiety disorder, unspecified
CPT/HCPCS: 99214

== ENCOUNTER 2025-08-23 07:47 | Outpatient (REF) | payer OTHER, SELFPAY ==
--- NOTE | ~2025-08-23 | FL_ITS ---
EXAMINATION: XR UPPER GI SERIES WITH SMALL BOWEL CLINICAL INFORMATION: Gastroesophageal reflux disease with esophagitis COMPARISON: None available. TECHNIQUE: Barium swallow was performed using thin and thick barium and effervescent granules. There is tablet was also administered. FINDINGS: No aspiration or penetration. Esophageal motility is normal. No evidence of stricture or reflux or hernia. Thymic and duodenum are normal. No fold thickening ulceration mass or stricture. FLUOROSCOPY TIME: 1 minute 38 seconds DOSE AREA PRODUCT: 1433 uGy-m2 (microgray-meter squared) FL/FL upper GI w air w Ba Swallow IMPRESSION: Unremarkable examination. Electronically signed by: Jada Gunn MD 08/23/2025 09:00 AM EDT
--- OUTSIDE RECORDS SUMMARY | 2025-08-23 07:52 | XMS_ITS | Clinical Summary ---
Author Organization [facility] Address [address] [place] [address] Care Team Providers Care Print Production Coordinator Name Role Phone Peter Rajan MD Primary Care Provider [phone] Allergies No known active allergies Medications Medication [...] age to complete this topic Care Teams Print Production Coordinator Relationship Specialty Start Date End Date Peter Rajan MD [address] [place] [address] PCP - General Internal Medicine 05/19/21
--- OUTSIDE RECORDS SUMMARY | 2025-08-23 07:52 | XMS_ITS | Patient Health Record ---
Author Organization [employer] Address [address] [place] [address] Care Team Providers Care Icu Nurse Name Role Phone RODRIGO ESCOBAR Primary Care Provider Lenin Multani Unavailable [phone] Allergies Allergen (clinical drug ingredient) Drug/Non Drug Allergy documented on EMR Reaction Allergy Type Onset Date Status albuterol Albuterol Chest Spasm Drug Allergy Activ e Results Component Value Reference Range Notes Homocyst(e)ine-736982 Reviewed date:04/14/2025 12:41:50 PM Interpretation: Performing Lab:[facility] [place], [address] [place] [address], Phone - [phone], Director - [facility] Notes/Report: Test(s) 193484-Xvynuazfourxz Acid, Serum was developed and its performance characteristics determined by [employer]. It has not been cleared or approved by the Food and Drug Administration. Homocyst(e)ine 9.9 0.0-14.5 umol/L Methylmalonic Acid, Serum-70 6961 Reviewed date:04/14/2025 12:42:22 PM Interpretation: Performing Lab:[facility] [place], [address] [place] [address], Phone - [phone], Director - Tani Notes/Report: Test(s) 771849-Wsikctumomulm Acid, Serum was developed and its performance characteristics determined by [employer]. It has not been cleared or approved by the Food and Drug Administration. Methylmalonic Acid, Serum 100 0-378 nmol/L Comp. Metabolic Panel (14)-3 50855 Reviewed date:04/14/2025 12:42:06 PM Interpretation: Performing Lab:[facility] [place], [address] [place] [address], Phone - [phone], Director - [facility] Notes/Report: Test(s) 052463-Rkogbnifyctya Acid, Serum was developed and its performance characteristics determined by [employer]. It has not been cleared or approved [...] IU/L ALT (SGPT) 28 0-44 IU/L Lipid Panel-147700 Reviewed date:04/14/2025 12:42:13 PM Interpretation: Performing Lab:[facility], [address] [place] [address], Phone - [phone], Director - [facility] Notes/Report: Test(s) 567448-Majorwxxbnhlh Acid, Serum was developed and its performance characteristics determined by [employer]. It has not been cleared or approved by the Food and Drug Administration. Cholesterol, Total 206 100-199 mg/dL Triglycerides 151 0-149 mg/dL HDL Cholesterol 60 >39 mg/dL VLDL Cholesterol Cj 26 5-40 mg/dL LDL Chol Calc ([facility]) 120 0-99 mg/dL CBC with Diff, Platelet, NLR -575009 Reviewed date:04/14/2025 12:41:55 PM Interpretation: Performing Lab:[facility], [address] [facility] [address] [facility], Phone - [phone], Director - [facility] Notes/Report: Test(s) 982769-Ybqcjxlbfljvt Acid, Serum was developed and its performance characteristics determined by [employer]. It has not been cleared or approved [...] (Abs) 0.1 0.0-0.1 x10E3/uL Vitamin B12 and Folate-43377 0 Reviewed date:04/14/2025 12:42:01 PM Interpretation: Performing Lab:[facility], [address] [place] [address], [place], Phone - [phone], Director - Jaz Notes/Report: Test(s) 443041-Fvcxndczbyskh Acid, Serum was developed and its performance characteristics determined by [employer]. It has not been cleared or approved by the Food and Drug Administration. Vitamin B12 430 360-5898 pg/mL Folate (Folic Acid), Serum 11.1 >3.0 ng/mL A serum folate concentration of less than 3.1 ng/mL is considered to represent clinical deficiency. Reason For Referral Reason GERD please evalua te and treat Diagnosis 1 Gastroesophageal ref lux disease, unspecified whether esophagitis present (K21.9) Referral Organization [facility] Referring Provider First Name RODRIGO Referring Provider Last Name SHAWN Referring Provider Speciality Internal M edicine Referred Provider Specialty Gastroentero logy General Notes Referral was faxed t [facility] Gastroenterology. Please contact patient for scheduling.Mathew Rashida 01/18/2025 09:54:34 AM > Referral Priority Routine Reason please evaluate and treat Please evaluate and treat Diagnosis 1 Mild intermittent as thma without complication (J45.20) Referral Organization [facility] Referring Provider First Name Lenin Referring Provider Last Name Nerissa Referred Provider Specialty Pulmonology General Notes Please call the [facility] to schedule the appointment, Encounter created and SMS sent to the pt. Jillian Zarate 06/01/2025 03:49:27 PM > Referral Priority Routine Medications Medication SIG (Take, Route, Frequency, Duration) Notes Start Date End Date Status Aspirin 81 81 MG 1 tablet Orally Once a day Not-Taking Viagra 25 MG 1 tablet as needed Orally Once a day; Duration: 30 day(s) 10/29/2022 Not-Taking Albuterol Sulfate HFA 108 (90 Base) MCG/ACT 1 puff as needed Inhalation every 4 hrs; Duration: 30 days Not-Taking Pantoprazole Sodium 20 MG 1 tablet 1/2 t o 1 hour before morning meal Orally Once a day 06/09/2025 Active QC Famotidine Acid Certified [employer] 10 MG 1 tablet as needed Orally Twice a day; Duration: 30 days 11/26/2024 Not-Taking hydrOXYzine HCl 25 MG 1 tablet as needed Orally Once a day; Duration: 30 days 10/07/2024 Active Omeprazole 20 MG 1 capsule 30 minutes before morning meal Orally Once a day; Duration: 30 days 10/07/2024 Not-Taking Atrovent HFA 17 MCG/ACT 2 puffs as neede d Inhalation every 6 hrs; Duration: 30 days 04/27/2025 Active Immunizations Vaccine Route Administration Date Status Comme [...] Notes Problem Obesity due to excess calories (020357172) Other obesity due to excess calories (E66.09) Active confirmed Problem Cannabis abuse (34365390) Cannabis abuse, uncomplicated (F12.10) Active confirmed Problem Mild intermittent asthma (265852270) Mild intermittent asthma, uncomplicated (J45.20) Active confirmed Problem Erectile dysfunction (disorder) (365586555) Male erectile dysfunction, unspecified (N52.9) Active confirmed Problem Painful micturition (37185990) Painful micturition, unspecified (R30.9) Active confirmed Problem Gastroesophageal reflux disease without esophagitis (532449220) Gastroesophageal reflux disease without esophagitis (K21.9) Active confirmed Problem Generalized anxiety disorder (13337441) MARYLIN (generalized anxiety disorder) (F41.1) Active confirmed Problem Gastroesophageal reflux disease (553810613) Gastroesophageal reflux disease, unspecified whether esophagitis present (K21.9) Active confirmed Problem Mild intermittent asthma (461958139) Mild intermittent asthma without complication (J45.20) Active confirmed Vital Signs Heart Rate 91 /min 06/09/2025 Temperature 97.2 degrees Fahrenheit 06/09/2025 Oximetry 98 % 06/09/2025 Blood pressure diastolic 78 mm Hg 06/09/2025 Height 71 in 06/09/2025 Blood pressure systolic 110 mm Hg 06/09/2025 Weight 229.7 lbs 06/09/2025 BMI 32.03 kg/m2 06/09/2025 Encounters Encounter Location Date Provider Diagnosis [address] [place] [address] 09/22/2024 Ghadeer Mazloum Palpitation R00.2 ; Cannabis abuse, uncomplicated F12.10 and Mild intermittent asthma, uncomplicated J45.[address] [place] [address] 10/07/2024 Ghadeer Mazloum Gastroesophageal ref lux disease without esophagitis K21.9 and MARYLIN (generalized anxiety disorder) F41.[address] [place] [address] 11/04/2024 WALLACE GUL Gastroesophageal ref lux disease without esophagitis K21.9 ; MARYLIN (generalized anxiety disorder) F41.1 ; Palpitations R00.2 ; Other obesity due to excess calories E66.09 ; Dietary counseling and surveillance Z71.3 and Cannabis abuse, uncomplicated F12.[address] [place] [address] 01/15/2025 WALLACE GUL Gastroesophageal ref lux disease without esophagitis K21.[address] [place] [address] 04/07/2025 Ghadeer Raquelum Annual visit for [facility] adult medical examination without abnormal findings Z00.00 ; Gastroesophageal reflux disease without esophagitis K21.9 ; Encounter for screening for cardiovascular disorders Z13.6 ; Marijuana use F12.90 ; Obesity, class 1 E66.811 ; Dietary counseling and surveillance Z71.3 and Mild intermittent asthma, uncomplicated J45.[address] [place] [address] 06/09/2025 WALLACE GUL Gastroesophageal ref lux disease without esophagitis K21.9 ; Chest pain, unspecified R07.9 ; Marijuana use F12.90 ; Obesity, class 1 E66.811 ; Dietary counseling and surveillance Z71.3 and Mild intermittent asthma, uncomplicated J45.[address] [place] [address] 01/18/2025 [facility] [address] [place] [address] 02/26/2025 [facility] Shortness of breath R06.02 [facility] [address] [place] [address] 04/15/2025 [facility] [address] [place] [address] 06/01/2025 [facility] [address] [place] [address] 09/16/2024 [facility] [address] [place] [address] 09/16/2024 [facility] [address] [place] [address] 09/17/2024 [facility] [address] [place] [address] 09/18/2024 [facility] [address] [place] [address] 10/05/2024 [facility] [address] [place] [address] 10/05/2024 [facility] [address] [place] [address] 10/05/2024 [facility] [address] [place] [address] 10/12/2024 [facility] [address] [place] [address] 10/14/2024 [facility] [address] [place] [address] 11/26/2024 [facility] Gastroesophageal ref lux disease without esophagitis K21.9 [facility] [address] [place] [address] 11/26/2024 [facility] [address] [place] [address] 12/11/2024 [facility] [address] [place] [address] 03/21/2025 [facility] [address] [place] [address] 03/22/2025 [facility] [address] [place] [address] 03/24/2025 [facility] [address] [place] [address] 03/31/2025 [facility] [address] [place] [address] 04/02/2025 [facility] [address] [place] [address] 04/02/2025 [facility] [address] [place] [address] 04/02/2025 [facility] [address] [place] [address] 04/07/2025 [facility] [address] [place] [address] 04/08/2025 [facility] [address] [place] [address] 04/09/2025 [facility] [address] [place] [address] 04/09/2025 [facility] [address] [place] [address] 04/13/2025 [facility] [address] [place] [address] 04/13/2025 [facility] [address] [place] [address] 04/13/2025 [facility] [address] [place] [address] 04/13/2025 [facility] [address] [place] [address] 04/13/2025 [facility] [address] [place] [address] 04/13/2025 [facility] [address] [place] [address] 04/18/2025 Ghadeer Mazloum Mild intermittent asthma, uncomplicated J45.20 [facility] [address] [place] [address] 04/28/2025 [facility] [address] [place] [address] 04/29/2025 [facility] [address] [place] [address] 05/07/2025 [facility] [address] [place] [address] 05/07/2025 [facility] [address] [place] [address] 05/07/2025 [facility] [address] [place] [address] 05/12/2025 Ghadeer Mazloum Mild intermittent as thma without complication J45.20 [facility] [address] [place] [address] 05/27/2025 [facility] [address] [place] [address] 05/27/2025 Ghadeer Mazloum Assessments Encounter Date Diagnosis (ICD Code) Assessment Notes Treatment Notes Treatment Clinical Notes Section Notes 11/26/2024 Gastroesophageal reflux disease without esophagitis (ICD-10 - K21.9) 11/04/2024 Gastroesophageal reflux disease without esophagitis (ICD-10 [...] most likely erectile dysfunction as well. 09/22/2024 Palpitation (ICD-10 - R00.2) Mr. Hollins [...] the patient but was available upon request 01/15/2025 Gastroesophageal reflux disease without esophagitis (ICD-10 [...] 02/26/2025 Shortness of breath (ICD-10 - R06.02) 04/07/2025 Gastroesophageal reflux disease without esophagitis (ICD-10 - K21.9) Mr. Hollins is a 34-year-old gentleman with male erectile dysfunction and mild intermittent asthma here for annual physical examination. Plan as follows GERD. He is currently following with GI at [facility]. Per record, patient will be undergoing a [...] He did have a prior workup of hospital monitor by the felt hat steamer and the results were unremarkable for any [...] He is currently following with GI at [facility]. Per record, patient will be undergoing a [...] He did have a prior workup of hospital monitor by the felt hat steamer and the results were unremarkable for any [...] intermittent asthma without complication (ICD-10 - J45.20) 10/07/2024 Gastroesophageal reflux disease without esophagitis (ICD-10 [...] He has an appt this week with [facility]. Started patient on Hydroxyzine for anxiety [...] He has an appt this week with [facility]. Started patient on Hydroxyzine for anxiety until he sees psychiatry this week for further evaluation. I have rendered the services for this patient under direct supervision of Dr. Escobar, who did not see the patient but was available upon request 06/09/2025 Chest pain, unspecified (ICD-10 - R07.9) Mr. Hollins is a 34-year-old gentleman with male erectile dysfunction and mild intermittent asthma here for follow-up to the ER after chest pain. Plan as follows. Chest pain. Atypical chest pain. Workup was negative and patient was discharged. GERD. He is currently following with GI at [facility]. Per record, patient will be undergoing a [...] He did have a prior workup of hospital monitor by the felt hat steamer and the results were unremarkable for any [...] and vaccinations General concerns have been discussed 06/09/2025 Gastroesophageal reflux disease without esophagitis (ICD-10 - K21.9) Mr. Hollins is a 34-year-old gentleman with male erectile dysfunction and mild intermittent asthma here for follow-up to the ER after chest pain. Plan as follows. Chest pain. Atypical chest pain. Workup was negative and patient was discharged. GERD. He is currently following with GI at [facility]. Per record, patient will be undergoing a [...] He did have a prior workup of hospital monitor by the felt hat steamer and the results were unremarkable for any [...] and vaccinations General concerns have been discussed 06/09/2025 Marijuana use (ICD-10 - F12.90) Mr. Hollins is a 34-year-old gentleman with male erectile dysfunction and mild intermittent asthma here for follow-up to the ER after chest pain. Plan as follows. Chest pain. Atypical chest pain. Workup was negative and patient was discharged. GERD. He is currently following with GI at [facility]. Per record, patient will be undergoing a [...] He did have a prior workup of hospital monitor by the felt hat steamer and the results were unremarkable for any [...] and vaccinations General concerns have been discussed 04/07/2025 Encounter for screening for cardiovascular disorders (ICD-10 - Z13.6) Mr. Hollins is a 34-year-old gentleman with male erectile dysfunction and mild intermittent asthma here for annual physical examination. Plan as follows GERD. He is currently following with GI at [facility]. Per record, patient will be undergoing a [...] He did have a prior workup of hospital monitor by the felt [facility] steamer and the results were unremarkable for any [...] most likely erectile dysfunction as well. 11/04/2024 Other obesity due to excess calories [...] the patient but was available upon request 06/09/2025 Obesity, class 1 (ICD-10 - E66.811) Mr. Hollins is a 34-year-old gentleman with male erectile dysfunction and mild intermittent asthma here for follow-up to the ER after chest pain. Plan as follows. Chest pain. Atypical chest pain. Workup was negative and patient was discharged. GERD. He is currently following with GI at [facility]. Per record, patient will be undergoing a [...] He did have a prior workup of hospital monitor by the felt hat steamer and the results were unremarkable for any [...] and vaccinations General concerns have been discussed 04/07/2025 Marijuana use (ICD-10 - F12.90) Mr. Hollins is a 34-year-old gentleman with male erectile dysfunction and mild intermittent asthma here for annual physical examination. Plan as follows GERD. He is currently following with GI at [facility]. Per record, patient will be undergoing a [...] He did have a prior workup of hospital monitor by the felt [facility] steamer and the results were unremarkable for any [...] the patient but was available upon request 06/09/2025 Dietary counseling and surveillance (ICD-10 - Z71.3) Mr. Hollins is a 34-year-old gentleman with male erectile dysfunction and mild intermittent asthma here for follow-up to the ER after chest pain. Plan as follows. Chest pain. Atypical chest pain. Workup was negative and patient was discharged. GERD. He is currently following with GI at [facility]. Per record, patient will be undergoing a [...] He did have a prior workup of hospital monitor by the felt hat steamer and the results were unremarkable for any [...] and vaccinations General concerns have been discussed 04/07/2025 Obesity, class 1 (ICD-10 - E66.811) Mr. Hollins is a 34-year-old gentleman with male erectile dysfunction and mild intermittent asthma here for annual physical examination. Plan as follows GERD. He is currently following with GI at [facility]. Per record, patient will be undergoing a [...] He did have a prior workup of hospital monitor by the felt hat steamer and the results were unremarkable for any [...] patient but was available upon request 11/04/2024 Dietary counseling and surveillance (ICD-10 - [...] most likely erectile dysfunction as well. 11/04/2024 Cannabis abuse, uncomplicated (ICD-10 - F12.10) [...] He is currently following with GI at [facility]. Per record, patient will be undergoing a [...] He did have a prior workup of hospital monitor by the felt hat steamer and the results were unremarkable for any [...] the patient but was available upon request 06/09/2025 Mild intermittent asthma, uncomplicated (ICD-10 - J45.20) Mr. Hollins is a 34-year-old gentleman with male erectile dysfunction and mild intermittent asthma here for follow-up to the ER after chest pain. Plan as follows. Chest pain. Atypical chest pain. Workup was negative and patient was discharged. GERD. He is currently following with GI at [facility]. Per record, patient will be undergoing a [...] He did have a prior workup of hospital monitor by the felt hat steamer and the results were unremarkable for any [...] and vaccinations General concerns have been discussed 04/07/2025 Mild intermittent asthma, uncomplicated (ICD-10 - J45.20) Mr. Hollins is a 34-year-old gentleman with male erectile dysfunction and mild intermittent asthma here for annual physical examination. Plan as follows GERD. He is currently following with GI at [facility]. Per record, patient will be undergoing a [...] He did have a prior workup of hospital monitor by the felt hat steamer and the results were unremarkable for any [...] TESTING 11/21/2023 Stress Echocardiogram 02/26/2025 CBC/Differential (No Platelet)-[id number] Next Appt Details Provider Name:Lenin ramos, 04/08/2026 02:00:00 PM, [address] [place] [address], [place], [address], Insurance Providers Payer Name Payer Address Payer Phone Subscriber Number Group Number Insured Name Patient Relationship to Insured Coverage Start Date Coverage End Date [facility] [address] [place] [address] [id number] Isidoro Hollins Self - patient is the insured Medical (General) History Medical History History ICD Code Mild persistent asthma Male erectile dysfunction
--- OUTSIDE RECORDS SUMMARY | 2025-08-23 07:52 | XMS_ITS | Clinical Summary ---
Author Organization [facility] [place] [facility] it Address [address] [place] [address] Care Team Providers Care Forestry Foreman Name Role Phone Ori Gonzales MD Primary [...] 07/06/2015 07/06/2005, 12/19/1996, 04/05/1994, Additional history exists HPV Vaccines (1 - 3-dose SCDM series) 2019 HIV Screening 10/21/2022 Hepatitis C Screening 10/21/2022 Social Influencers of Health Screening 10/21/2022 Depression Screening 11/18/2024 COVID-19 Vaccine ( season) 2025 Influenza Vaccine (#1) 2025 RSV Immunization Adult Patients (1 - 1-dose 75+ series) 2067 HIB Vaccines Completed 11/07/1993, 040 06/1993, 01/20/1993, Additional history exists IPV Vaccines Completed 12/19/1996, 03/18, 01/20/1993, Additional history exists Hepatitis B Vaccines Completed 09/08/1997, 01/14/1995, 1992 MMR Vaccines Completed 05/10/2011, 11/07/1993 Meningococcal ACWY Vaccine Completed 05/10/2011, Hepatitis A Vaccines Aged Out No long [...] age to complete this topic Care Teams Forestry Foreman Relationship Specialty Start Date End Date Ori Gonzales MD PCP - General 06/11/23
== END 2025-08-23 07:48 | disposition home or self-care (01) ==
LOC: HO.XRAY 07:47
PROVIDERS: PCP Hospitalist; Visit Provider Nurse Practitioner Family
DX: K21.9 Gastro-esophageal reflux disease without esophagitis (principal); R13.10 Dysphagia, unspecified
CPT/HCPCS: 74246

== ENCOUNTER → 2025-08-23 07:51 | Outpatient (BNV) | payer OTHER, SELFPAY | PROVIDERS: PCP Hospitalist; Visit Provider Radiology Diagnostic Radiology | DX: K21.9 Gastro-esophageal reflux disease without esophagitis (principal) | CPT/HCPCS: 74246 ==